=== PATIENT | female | born 1950 | race Caucasian/White ===

== ENCOUNTER 2023-07-22 21:10 | Inpatient (IN) ==
[2023-07-22 21:40] LABS: iSTAT Creatinine 1.3 mg/dl (0.6-1.3); iSTAT Hemoglobin 12.2 g/dl (12.0-16.0); iSTAT Ionized Calcium 1.2 mmol/l (1.12-1.32); iSTAT Potassium 4.1 mmol/L (3.3-5.0)
[2023-07-22 21:51] LABS: Basophils # (auto) 0.08 K/uL (0.00-0.20); Basophils % (auto) 0.4 %; Eosinophils # (auto) 0.08 K/uL (0.00-0.50); Eosinophils % (auto) 0.4 %; Hematocrit (blood only) 35.3 % (37.0-47.0); Hemoglobin 11.2 g/dl (12.0-16.0); Lymphocytes # (auto) 1.14 K/uL (1.20-3.40); Lymphocytes % (auto) 5.7 %; Mean Corpuscular Hemoglobin 30.8 pg (25.0-34.0); Mean Corpuscular Hgb Conc 31.7 g/dL (32.0-36.0); Mean Platelet Volume 9.2 fL (9.4-12.4); Monocytes # (auto) 1.37 K/uL (0.11-0.59); Monocytes % (auto) 6.8 %; Neutrophils # (auto) 17.14 K/uL (1.40-6.50); Neutrophils % (auto) 85.7 %; Platelet Count 905 K/uL (130-400); RDW Coefficient of Variation 15.3 % (11.5-14.5); RDW Standard Deviation 54.2 fL (36.4-46.3); Red Blood Count 3.64 M/uL (4.20-5.40); White Blood Count 20.01 K/ul (4.8-10.8)
[2023-07-22 22:03] LABS: Albumin Level 3.3 gm/dl (3.4-5.0); BUN Creatinine Ratio 11.5 (10-20); Bilirubin Direct 0.1 mg/dl (0-0.2); Bilirubin,Total 0.5 mg/dl (0.2-1.0); Calcium 9.7 mg/dl (8.6-10.3); Est GFR (Non-African American) 40.6 ml/min; Magnesium 1.6 mg/dl (1.7-2.4); Potassium 4.1 mmol/L (3.5-5.1); Total Protein 6.4 gm/dl (6.0-8.3)
[2023-07-22 22:09] LABS: Troponin I High Sensitivity 4.9 pg/ml (0-14)
[2023-07-22] MEDS: OPTIRAY 320 125ml IV ONE (22:10)
[2023-07-22 22:13] LABS: INR 1.1 (0.9-1.1); Partial Thromboplastin Ratio 0.9; Partial Thromboplastin Time 23 Seconds (21-31); Prothrombin Time 11.4 Seconds (9.0-12.0)
[2023-07-22] MEDS: SODIUM CHLORIDE 0.9% 1,000 ML IV SCH (22:22)
[2023-07-22] MEDS: SODIUM CHLORIDE 0.9% 1,000 ML IV ONE (22:24)
--- NOTE | 2023-07-22 22:29 | XRay Report ---
XR chest 1V portable CLINICAL HISTORY: Sepsis TECHNIQUE: Single frontal radiograph of the chest was obtained. Comparison: None available at the time of this dictation. FINDINGS: No lines and tubes are seen. The cardiomediastinal silhouette is normal. The lungs are clear. No evid ence of pleural effusion or pneumothorax. IMPRESSION: No acute abnormalities and in particular no radiographic evidence of pneumonia. ACT 112: Negative or not required by law. Electronically signed by: Wesley Morgan M.D. 07/22/2023 10:27 PM
[2023-07-22 22:33] LABS: Adenovirus PCR Not Detected (NotDetected); Bordetella parapertussis PCR Not Detected (NotDetected); Bordetella pertussis PCR Not Detected (NotDetected); Chlamydia pneumoniae PCR Not Detected (NotDetected); Coronavirus 229E PCR Not Detected (NotDetected); Coronavirus CoV-2 (COVID19)PCR Not Detected (NotDetected); Coronavirus HKU1 PCR Not Detected (NotDetected); Coronavirus NL63 PCR Not Detected (NotDetected); Coronavirus OC43PCR Not Detected (NotDetected); Human Metapneumovirus PCR Not Detected (NotDetected); Influenza A PCR Not Detected (NotDetected); Influenza B PCR Not Detected (NotDetected); Mycoplasma pneumoniae PCR Not Detected (NotDetected); Parainfluenza Virus 1 PCR Not Detected (NotDetected); Parainfluenza Virus 2 PCR Not Detected (NotDetected); Parainfluenza Virus 3 PCR Not Detected (NotDetected); Parainfluenza Virus 4 PCR Not Detected (NotDetected); Respiratory Syncytial VirusPCR Not Detected (NotDetected); Rhinovirus/Enterovirus PCR Not Detected (NotDetected)
--- NOTE | 2023-07-22 22:34 | CT Scan Report ---
Exam(s): CT ABDOMEN + PELVIS With Contrast IV Amt: 115 ml optiray 320 EXAM: CT Abdomen and Pelvis With Intravenous Contrast CLINICAL HISTORY: Reason for exam: nvd hypotensive rigid abdomen. TECHNIQUE: Axial computed tomography images of the abdomen and pelvis with intravenous contrast. CTDI is 49.53 mGy and DLP is 1687.91 mGy-cm. Automated exposure control was utilized for the study. A dose lowering technique was utilized adhering to the principles of ALARA. CONTRAST: Patient received 115 ml optiray 320 of IV contrast COMPARISON: No relevant prior studies available. FINDINGS: Lung bases: Unremarkable. No mass. No consolidation. Mediastinum: Small hiatal hernia. ABDOMEN: Liver: Unremarkable. No mass. Gallbladder and bile ducts: Cholelithiasis without CT findings to suggest acute cholecystitis. No biliary dilatation. Pancreas: Unremarkable. No mass. No ductal dilation. Spleen: Unremarkable. No splenomegaly. Adrenals: Unremarkable. No mass. Kidneys and ureters: Unremarkable. No solid mass. No hydronephrosis. Stomach and bowel: No bowel obstruction. Fluid-filled small bowel. Fluid-filled colon with pancolonic wall thickening. PELVIS: Appendix: Appendix not visualized. Bladder: Bladder wall thickening, cystitis or incomplete distention. Reproductive: Hysterectomy. ABDOMEN and PELVIS: Intraperitoneal space: Unremarkable. No intra-abdominal free air or significant free fluid. Bones/joints: No acute fracture. No dislocation. Soft tissues: Left mastectomy. Right breast implant. Postoperative changes of the low anterior abdominal wall may reflect previous abdominoplasty or TRAM flap. Fluid collection within or just subjacent to the deep abdominal wall musculature and extending into the pre- vesicular space of Retzius, measuring 2.7 x 5.6 x 17 cm, possibly postoperative hematoma/seroma. Multiple regional surgical clips. Subcutaneous drainage catheter extends to the overlying tissues. Vasculature: Atherosclerosis. No aortic aneurysm. Lymph nodes: Unremarkable. No enlarged lymph nodes. IMPRESSION: 1. Postoperative changes of the low anterior abdominal wall may reflect previous abdominoplasty or TRAM flap. Fluid collection within or just subjacent to the deep abdominal wall musculature and extending into the pre-vesicular space of Retzius, measuring 2.7 x 5.6 x 17 cm, possibly postoperative hematoma/seroma. Multiple regional surgical clips. Subcutaneous drainage catheter extends through the overlying tissues, not entering this collection. 2. Fluid-filled small bowel. Fluid-filled colon with pancolonic wall thickening. Findings suggest colitis/enterocolitis. 3. Bladder wall thickening, cystitis or incomplete distention. Correlate with urinalysis. Electronically signed by: oLng Rachel M.D. 07/22/23 22:33 PM
--- NOTE | 2023-07-22 22:42 | CT Scan Report ---
Exam(s): CTA CHEST IV Amt: 115 ml optiray 320 EXAM: CT Angiography Chest With Intravenous Contrast CLINICAL HISTORY: Reason for exam: hypoxia recent surg. TECHNIQUE: Axial computed tomographic angiography images of the chest with intravenous contrast. CTDI is 49.53 mGy and DLP is 1687.91 mGy-cm. Automated exposure control was utilized for the study. A dose lowering technique was utilized adhering to the principles of ALARA. MIP reconstructed images were created and reviewed. COMPARISON: No relevant prior studies available. FINDINGS: Pulmonary arteries: Unremarkable. No pulmonary embolism. Aorta: No acute findings. No aortic aneurysm or dissection. Lungs: Subpleural fibrotic changes anterior left upper lobe may represent postradiation changes. No consolidation or mass. Pleural space: Trace left pleural effusion. No pneumothorax. Heart: Coronary artery atherosclerosis. No cardiomegaly. No significant pericardial effusion. No evidence of RV dysfunction. Mediastinum: Small hiatal hernia. Bones/joints: No acute fracture. No dislocation. Soft tissues: Left mastectomy and left breast reconstruction, possibly with TRAM flap. Right breast implant. Lymph nodes: Unremarkable. No adenopathy. IMPRESSION: Trace left pleural effusion. No pulmonary embolism. Electronically signed by: Long Rachel M.D. 07/22/23 22:41 PM
[2023-07-22 23:22] LABS: Adenovirus F 40/41 PCR Not Detected (NotDetected); Astrovirus PCR Not Detected (NotDetected); Campylobacter PCR Not Detected (NotDetected); Cryptosporidium PCR Not Detected (NotDetected); Cyclospora cayetanensis PCR Not Detected (NotDetected); Entamoeba histolytica PCR Not Detected (NotDetected); Enteroaggregative E.coli(EAEC) Not Detected (NotDetected); Enteropathogenic E.coli (EPEC) Not Detected (NotDetected); Enterotoxigenic E.coli (ETEC) Not Detected (NotDetected); Giardia lamblia PCR Not Detected (NotDetected); Norovirus GI/GII PCR Not Detected (NotDetected); Plesiomonas shigelloides PCR Not Detected (NotDetected); Rotavirus A PCR Not Detected (NotDetected); Salmonella PCR Not Detected (NotDetected); Sapovirus PCR Not Detected (NotDetected); Shiga-like Toxin E.coli (STEC) Not Detected (NotDetected); Shigella/Enteroinvasive E.coli Not Detected (NotDetected); Vibrio cholerae PCR Not Detected (NotDetected); Vibrio species PCR Not Detected (NotDetected); Yersinia enterocolitica PCR Not Detected (NotDetected)
[2023-07-22] MEDS: PIPERACILLIN/TAZOBACTAM 4.5 GM/120 ML BAG IV ONE (23:25)
[2023-07-22 23:34] LABS: HCO3 VBG 19 mmol/L; Oxygen Saturation VBG < 60.0 %; PCO2 VBG 45 mmHg (38-50); PO2 VBG 35 mmHg; pH VBG 7.24 (7.36-7.41)
[2023-07-22] MEDS: SODIUM CHLORIDE 0.9% 500 ML IV ONE (23:47)
--- NOTE | 2023-07-22 23:54 | Surgery Consultation ---
Date of Consultation July 22, 2023 Assessment & Plan (1) Sepsis: I discussed with the treating emergency room physician. He has noted that he has spoken with the surgeon who performed the patient's recent surgery who is Dr. Doan of [facility]. The surgeon did not feel the fluid collection noted on CT scan was the source of the patient's underlying sepsis/problem and did not feel transfer to their facility was necessary at this time and recommended admission to [facility]. From surgical perspective we recommend the following: Provide IV fluid for resuscitation Follow serial labs Appropriate cultures have been ordered which are pending. Will monitor for the results of these Broad-spectrum antibiotics in the form of Zosyn have been initiated. Would recommend continue antibiotics monitoring the patient's clinical response and culture data. Further antibiotic choices can be tailored based on these results Continue MELQUIADES drains to bulb suction At the present time the patient is nontoxic-appearing. She is normotensive with a slight tachycardia of heart rate from 100-1 10. She is afebrile. The patient does not have a noted leukocytosis. She did have an elevated lactic acid level upon presentation emergency department but this is normalized with a dministration of antibiotics and IV fluids. If the patient fails to clinically improve with the above noted measures and there is still concern that the noted fluid collection on her abdominal CT scan is the source of her sepsis transfer to the facility where her surgery was performed may be required Addendum (5:30 AM) Patient revisited at the bedside. She notes that she feels improved since admission. Since admission she has not had any fevers, shakes, or chills. She has remained normotensive and her tachycardia has improved. No change noted in physical exam from time of admission. White blood cell count has improved to 16.2. Patient's creatinine is also improved and is now within the normal range. Continue with plan as noted above. As noted, if patient was clinically deterior ate necessitating potential surgical intervention to the abdominal fluid collection, she will require transfer to [facility] where her surgery was performed History of Present Illness Reason for Consultation: Abdominal fluid collection History of Present Illness This is a 72-year-old female who presented to the emergency department secondary to near syncopal episode. The patient notes that she was feeling fine yesterday but earlier today the patient developed sudden onset of diarrhea and nausea and vomiting. The patient had a episode where she felt as though she was going to pass out. The patient notes that her took her temperature and reports she had a fever although she could not signify what her temperature was. The patient denies any melena or bright red blood per rectum. No hematemesis is noted. She also denies any dysuria. The patient notes that she underwent a left TRAM flap at [facility] approximately [address] Doan. She notes that since her surgery she has not noted any increasing warmth from her incision. She has also not had any drainage from the incision but she does note that she has bilateral MELQUIADES drains in place that have been draining serosanguineous fluid and specifically notes there is been no pus draining from these drains. The patient notes that since her symptoms began she has not had much in the way of oral intake. Since arrival to the hospital the patient has had labs and imaging which I independently reviewed. Chest x-ray did not show any evidence of pneumonia. A CT scan of the chest was performed and this showed the there is a trace left pleural effusion. There are no consolidations suggestive of pneumonia. There is no evidence of pulmonary emboli. CT scan of the abdomen and pelvis was performed. There is no intra-abdominal free air or free fluid. The patient was noted to have a fluid collection adjacent to the deep abdominal wall musculature which extended into the prevesicular space measuring 2.7 x 5.7 x 17 cm. Subcutaneous drainage catheter was noted but was not in the noted fluid collection. There is a fluid-filled small bowel and fluid-filled colon with pancolonic wall thickening suggestive of colitis. There is also bladder wall thickening noted. Labs include a CBC were white blood cell count was elevated at 20.0. Hemoglobin and hematocrit were noted to be 11.2 and 35.3. Platelet count was 905,000. Coagulation studies were normal. Chemistry profile showed sodium and potassium were normal. The BUN and creatinine were 51.3. Magnesium was 1.6. Lactic acid level was initially elevated at 5.8 and was repeated approximately 2 hours later and is now normalized to 1.2. The patient did have a stool bio fire checked and it was negative for all substances tested including C. difficile. Patient also had a respiratory bio fire which was negative for all substances tested including coronavirus. At the time my interview the patient was resting comfortably in bed and she was in no distress. Allergies Allergy/AdvReac Type Severity Reaction Status Date / Time nicotine [From [facility]] AdvReac Nightmare Verified 07/22/23 23:59 Home Medications Medication Instructions Recorded Confirmed Type acetaminophen 325 mg tablet 650 mg PO TID PRN Pain 07/22/23 07/23/23 History (Tylenol) aspirin 81 mg tablet,delayed 81 mg PO DAILY 07/22/23 07/22/23 History release bupropion HCl 150 mg 24 hr tablet, 150 mg PO QAM 07/22/23 07/22/23 History extended release docusate sodium 100 mg capsule 100 mg PO BID 07/22/23 07/22/23 History gabapentin 300 mg capsule 300 mg PO DAILY PRN Pain 07/22/23 07/22/23 History gabapentin 300 mg capsule 600 mg PO HS 07/22/23 07/22/23 History letrozole 2.5 mg tablet 2.5 mg PO DAILY 07/22/23 07/22/23 History lisinopril 5 mg tablet 2.5 mg PO HS 07/22/23 07/22/23 History multivitamin 1 tab PO DAILY 07/22/23 07/22/23 History ondansetron 4 mg disintegrating 4 mg translingual Q6 PRN Nausea 07/22/23 07/22/23 History tablet vitamins-iron fumarate 27 1 tab PO DAILY 07/22/23 07/22/23 History mg iron-folic acid 0.8 mg tablet rosuvastatin 10 mg tablet 10 mg PO QAM 07/22/23 07/22/23 History tramadol 50 mg tablet 50 mg PO Q6 PRN Pain 07/22/23 07/22/23 History Patient History Medical History Breast cancer HLD (hyperlipidemia) HTN (hypertension) CKD (chronic kidney disease) Surgical History H/O breast reconstruction Social History Smoking Status: Former smoker Hx Substance Use: No Preferred Language: Azeri Communication Ability: Effective Entry Level Account Manager Required: No Beliefs That Will Affect Care: None Current Living Situation: Spouse Other Information That Helps Us Care for You: No Feels Safe at Home: Yes Safety Concerns: Feels Safe At This Time Assistive Devices: Glasses Review of Systems Constitutional: + fever Ear, Nose, Mouth, Throat: no ear pain and no hearing loss Respiratory: no cough and no dyspnea Cardiovascular: no chest pain Gastrointestinal: as per Subjective / HPI Genitourinary: no dysuria Musculoskeletal: no back pain Integumentary: no rash Neurologic: no localized weakness Physical Exam Constitutional: WD/WN, vitals as above Eyes: no conjunctival abnormality ENMT: Ears: no hearing impairment and no external ear abnormality Mouth: no oropharynx abnormality Neck: trachea midline Respiratory: normal respiratory effort; no respiratory distress and no labored breathing Cardiovascular: Rate/Rhythm: regular rate and regular rhythm Chest (Breasts): Additional Comments: With a female nurse professor of exercise science present I examined the patient's left chest. She has evidence of a TRAM flap as described in history of present illness. The incision for this part of the surgery is clean, dry, and intact. There is no drainage or erythema. There is no warmth noted of the tissue surrounding the incision. There is no crepitus in the soft tissue. Gastrointestinal (Abdomen): Patient's abdomen is minimally distended and nonrigid. There is no rebound tenderness or guarding. The patient had a transverse incision extending from the anterior inferior iliac spine on the left to the anterior inferior iliac spine on the right. The incision is well-approximated and is clean, dry, and intact. There is no drainage coming from the incision. There is no surrounding erythema of the incision. There is no crepitus in the soft tissue. The tissue surrounding the incision is not warm. The patient has bilateral MELQUIADES drains in place. These drains are draining serosanguineous fluid and the fluid does not appear purulent. There is a masslike area just to the left of the midline underlying the incision consistent with fluid collection noted on CT scan. Musculoskeletal: No calf tenderness, feet are cool with palpable pedal pulses and are nonmottled Skin: no rashes Neurologic: moves all extremities Psychiatric: A+Ox3, euthymic affect Results & Data Vital Signs (Past 12 Hours) Vital Signs Temp Pulse Pulse Resp BP BP Pulse Ox 07/22/23 22:25 112 H 22 126/64 100 07/22/23 21:50 98 07/22/23 21:35 36.7 C 121 H 20 101/78 98 O2 Del Method O2 Flow Rate 07/22/23 22:25 Nasal Cannula 2 07/22/23 21:50 Nasal Cannula 2 07/22/23 21:35 Nasal Cannula 2 PG Care Time/CCT Total # of Minutes Spent Total Time Spent with Patient: Total time spent is greater than 50% in coordination of care (as documented) at patient's floor/unit and/or counseling patient: Coding Level of Care Code 31727 INT INP/OBS CARE 3/75MIN Diagnoses Sepsis A41.9
[2023-07-23] MEDS: SODIUM CHLORIDE 0.9% 1,000 ML IV ONE (00:15)
[2023-07-23] MEDS: MAGNESIUM SULFATE / D5W 1 GM/100 ML BAG IV SCH (00:15)
[2023-07-23 00:18] LABS: Appearance Urine Clear (Clear); Bacteria Urine Automated None Seen (None Seen); Bilirubin Urine Negative (Negative); Blood Urine Negative (Negative); Color Urine Yellow; Glucose Urine UA Negative (Negative); Ketones Urine Negative (Negative); Leukocyte Esterase Urine Negative (Negative); Nitrite Urine Negative (Negative); Protein Urine 1+ (Negative); Specific Gravity Urine > 1.045 (1.000-1.030); Urobilinogen Urine Negative (Negative); WBC Urine Automated 0-5 /hpf (0-5); pH Urine 6.5 (4.5-7.5)
--- NOTE | 2023-07-23 01:05 | History & Physical Report ---
Date of Service July 23, 2023 Assessment & Plan (1) Severe sepsis: Plan: SIRS plus ARF plus lactic acidosis Patient clinical better and lactic acidosis resolved after initial intervention at the ER Possible sources : Diarrheal illness postop fluid collection (recent abdominal surgery for left breast reconstruction) hypertension, BP currently stable, patient initially hypotensive at home hyperlipidemia on statin Rx bronchial asthma, patient currently without pulmonary symptoms Left breast cancer status post surgery status post chemoradiation status post recent reconstruction currently on letrozole Anemia, hemoglobin improved from postop hemoglobin of 9 from last month, likely from hemoconcentration Hyperglycemia rule out DM past tobacco abuse Medical telemetry CS, Daptomycin and Zosyn Monitor creatinine response to IVF Hold lisinopril until creatinine back to baseline General Surgery consult Re: Abdominal wall fluid collection (Patient already seen by [facility] provider at the ER.) Check hemoglobin A1c DVT prophylaxis. SCDs Re: Possible abdominal wall hematoma as per CT report Full code Text document was generated using [employer] voice recognition software. It may contain grammatical or spelling errors. Kindly contact undersigned for clarification of any documentation item in question. History of Present Illness Chief Complaint: Diarrhea, near syncope Primary Care Provider: Agustin Olivares MD History obtained from patient and records. Medical history significant for hypertension, hyperlipidemia, bronchial asthma, left breast cancer status post surgery status post chemoradiation status post recent reconstruction currently on letrozole, lung nodule, past tobacco abuse. Recent [facility] confinement under Plastic Surgery service for left breast reconstruction with RADHA flap. Patient hypotensive postprocedure requiring pressor Rx at ICU.. Postop hemoglobin noted to be 6.8 requiring PRBC transfusion. Hemoglobin noted to be 9 at time of discharge. No concerns on outpatient Plastic Surgery follow-up visit last week. Yesterday, patient started not feeling well with achy abdominal pain followed by bilious emesis and watery diarrhea. Denies headache, chest pain, cough, SOB symptoms. Patient lightheaded, felt like she was going to pass out. EMS called to patient's home. Patient looked ashen tapia as per report. SBP noted to be 80s. Zosyn administered at the ER. Medical History as above Surgical History : Breast capsulectomy, breast lesion excision, breast implant, complete mastectomy left, mastopexy, a port placement, embolectomy, cataract surgeries, BHARGAVI Family History : Breast cancer, heart disease, lung cancer Personal/Social history : Past tobacco abuse, occasional EtOH intake, retired from criminal investigation work. Allergies Allergy/AdvReac Type Severity Reaction Status Date / Time nicotine [From [facility]] AdvReac Nightmare Verified 07/22/23 23:59 Home Medications Medication Instructions Recorded Confirmed Type acetaminophen 325 mg tablet 650 mg PO TID PRN Pain 07/22/23 07/23/23 History (Tylenol) aspirin 81 mg tablet,delayed 81 mg PO DAILY 07/22/23 07/22/23 History release bupropion HCl 150 mg 24 hr tablet, 150 mg PO QAM 07/22/23 07/22/23 History extended release docusate sodium 100 mg capsule 100 mg PO BID 07/22/23 07/22/23 History gabapentin 300 mg capsule 300 mg PO DAILY PRN Pain 07/22/23 07/22/23 History gabapentin 300 mg capsule 600 mg PO HS 07/22/23 07/22/23 History letrozole 2.5 mg tablet 2.5 mg PO DAILY 07/22/23 07/22/23 History lisinopril 5 mg tablet 2.5 mg PO HS 07/22/23 07/22/23 History multivitamin 1 tab PO DAILY 07/22/23 07/22/23 History ondansetron 4 mg disintegrating 4 mg translingual Q6 PRN Nausea 07/22/23 07/22/23 History tablet vitamins-iron fumarate 27 1 tab PO DAILY 07/22/23 07/22/23 History mg iron-folic acid 0.8 mg tablet rosuvastatin 10 mg tablet 10 mg PO QAM 07/22/23 07/22/23 History tramadol 50 mg tablet 50 mg PO Q6 PRN Pain 07/22/23 07/22/23 History Past Med/Surg History Problem List (Updated 07/23/23 @ 03:15 by Adal Salcedo MD) Severe sepsis Abdominal wall seroma (Acute) Hypoxia (Acute) Sepsis (Acute) Medical History Breast cancer HLD (hyperlipidemia) HTN (hypertension) CKD (chronic kidney disease) Surgical History H/O breast reconstruction Social History Smoking Status: Former smoker Preferred Language: Turkmen Feels Safe at Home: Yes Review of Systems Review of Systems: As per HPI, all other systems reviewed and negative Physical Exam Physical Exam: GENERAL: Comfortable, pleasant, no respiratory distress SKIN: Pallor, warm HEENT: Pale palpebral conjunctivae, no ptosis, dry buccal mucosa NECK : Supple, no tenderness CHEST : CTA, no tenderness HEART : Tachycardic, no obvious murmurs ABDOMEN: Some distention, jeni in place, minimal hypogastric tenderness EXTREMITIES : No LE swelling/tenderness, no other conspicuous deformities noted NEUROLOGIC : Coherent, no facial asymmetry, no other gross focality Results & Data Results & Data Vital Signs (Past 12 Hours) Vital Signs Temp Pulse Pulse Resp BP BP Pulse Ox 07/23/23 00:00 111 H 21 153/73 H 100 07/22/23 23:30 121/103 H 07/22/23 22:30 110 H 24 139/78 07/22/23 22:25 112 H 22 126/64 100 07/22/23 21:50 98 07/22/23 21:35 36.7 C 121 H 20 101/78 98 O2 Del Method O2 Flow Rate 07/23/23 00:00 Nasal Cannula 2 07/22/23 23:30 07/22/23 22:30 07/22/23 22:25 Nasal Cannula 2 07/22/23 21:50 Nasal Cannula 2 07/22/23 21:35 Nasal Cannula 2 Laboratory Results Laboratory Results WBC 20.01 K/ul (4.8-10.8) H 07/22/23 21: RBC 3.64 M/uL (4.20-5.40) L 07/22/23 21: Hgb 11.2 g/dl (12.0-16.0) L 07/22/23 21: POC Hgb 12.2 g/dl (12.0-16.0) 07/22/23 21: Hct 35.3 % (37.0-47.0) L 07/22/23 21: POC Hct 36 % (37-47) L 07/22/23 21: MCV 97.0 fL (80.0-100.0) 07/22/23 21: MCH 30.8 pg (25.0-34.0) 07/22/23 21: MCHC 31.7 g/dL (32.0-36.0) L 07/22/23 21: RDW Std Deviation 54.2 fL (36.4-46.3) H 07/22/23: RDW Coeff of Braxton 15.3 % (11.5-14.5) H 07/22/23 21:24 Plt Count 905 K/uL (130-400) H 07/22/23 21: MPV 9.2 fL (9.4-12.4) L 07/22/23 21: Immature Gran % (Auto) 1.0 % 07/22/23 21: Neut % (Auto) 85.7 % 07/22/23: Lymph % (Auto) 5.7 % 07/22/23: Desha % (Auto) 6.8 % 07/22/23: Eos % (Auto) 0.4 % 07/22/23: Baso % (Auto) 0.4 % 07/22/23: Neut # (Auto) 17.14 K/uL (1.40-6.50) H 07/22/23 21:24 Lymph # (Auto) 1.14 K/uL (1.20-3.40) L 07/22/23 21:24 Desha # (Auto) 1.37 K/uL (0.11-0.59) H 07/22/23 21:24 Eos # (Auto) 0.08 K/uL (0.00-0.50) 07/22/23: Baso # (Auto) 0.08 K/uL (0.00-0.20) 07/22/23 21: Immature Gran # (Auto) 0.20 K/uL (0.01-0.20) 07/22/23: PT 11.4 Seconds (9.0-12.0) 07/22/23: INR 1.1 (0.9-1.1) 07/22/23: APTT 23 Seconds (21-31) 07/22/23: PTT Ratio 0.9 07/22/23 21: VBG pH 7.24 (7.36-7.41) L 06/14/24 23:23 VBG pCO2 45 mmHg (38-50) 07/22/23 23: VBG pO2 35 mmHg 07/22/23 23:23 VBG HCO3 19 mmol/L 07/22/23 23: VBG O2 Saturation < 60.0 % 07/22/23 23: VBG Base Excess -8.0 mEq/L 07/22/23 23:23 POC Sodium 136 mmol/L (135-144) 07/22/23 21: Sodium 136 mmol/L (136-145) 07/22/23: POC Potassium 4.1 mmol/L (3.3-5.0) 07/22/23 21: Potassium 4.1 mmol/L (3.5-5.1) 07/22/23: POC Chloride 104 mmol/L (101-112) 07/22/23 21: Chloride 103 mmol/L (98-107) 07/22/23: Carbon Dioxide 20 mmol/L (21-32) L 07/22/23: POC Total CO2 21 mmol/L (24-31) L 07/22/23: Anion Gap 13 (3-11) H 07/22/23 21: POC Anion Gap 16.0 mmol/L (16-25) 07/22/23 21: POC BUN 13 mg/dl (7-18) 07/22/23: BUN 15 mg/dl (6-23) 07/22/23: Creatinine 1.31 mg/dl (0.6-1.2) H 07/22/23: POC Creatinine 1.3 mg/dl (0.6-1.3) 07/22/23: Est Cr Clr Drug Dosing 45.0 ml/min 07/22/23 21: Est GFR ( Amer) 47.0 ml/min 07/22/23 21: Est GFR (Non-Af Amer) 40.6 ml/min 07/22/23 21: BUN/Creatinine Ratio 11.5 (10-20) 07/22/23 21: Glucose 124 mg/dl (70-99(Fasting)) H 07/22/23 21: POC Glucose (other) 119 mg/dl (70-99) H 06/14/24 21:27 Lactate 1.2 mmol/L (0.4-2.0) 07/22/23 23:23 Calcium 9.7 mg/dl (8.6-10.3) 07/22/23 21:24 POC Ioniz Calcium Tim 1.20 mmol/l (1.12-1.32) 07/22/23 21:27 Magnesium 1.6 mg/dl (1.7-2.4) L 07/22/23 21:24 Total Bilirubin 0.5 mg/dl (0.2-1.0) 07/22/23 21:24 Direct Bilirubin 0.1 mg/dl (0-0.2) 07/22/23 21:24 AST 21 U/L (13-39) 07/22/23 21:24 ALT 11 U/L (7-52) 07/22/23 21:24 Alkaline Phosphatase 89 U/L (34-104) 07/22/23 21:24 Troponin I High Sens 4.9 pg/ml (0-14) 07/22/23 21:24 Total Protein 6.4 gm/dl (6.0-8.3) 07/22/23 21:24 Albumin 3.3 gm/dl (3.4-5.0) L 07/22/23 21:24 Procalcitonin 1.50 ng/ml (0-0.5) H 07/22/23 21:24 Urine Color Yellow 07/22/23 23:54 Urine Appearance Clear (Clear) 07/22/23 23:54 Urine pH 6.5 (4.5-7.5) 07/22/23 23:54 Ur Specific [place] > 1.045 (1.000-1.030) H 07/22/23 23:54 Urine Protein 1+ (Negative) H 07/22/23 23:54 Urine Glucose (UA) Negative (Negative) 07/22/23 23:54 Urine Ketones Negative (Negative) 07/22/23 23:54 Urine Blood Negative (Negative) 07/22/23 23:54 Urine Nitrite Negative (Negative) 07/22/23 23:54 Urine Bilirubin Negative (Negative) 07/22/23 23:54 Urine Urobilinogen Negative (Negative) 07/22/23 23:54 Ur Leukocyte Esterase Negative (Negative) 07/22/23 23:54 Urine WBC (Auto) 0-5 /hpf (0-5) 07/22/23 23:54 Urine RBC (Auto) 3-5 /hpf (0-2) H 07/22/23 23:54 U Hyaline Cast (Auto) 3-5 /lpf (0-2) H 07/22/23 23:54 U Epithel Cells (Auto) 3-5 /hpf (0-2) H 07/22/23 23:54 Urine Bacteria (Auto) None Seen (None Seen) 07/22/23 23:54 Stl C. cayetanensis PCR Not Detected (NotDetected) 07/22/23 21:47 Stool Rotavirus A PCR Not Detected (NotDetected) 07/22/23 21:47 Stl Adenov F 40/41 PCR Not Detected (NotDetected) 07/22/23 21:47 Stool Astrovirus (PCR) Not Detected (NotDetected) 07/22/23 21:47 Stool Campylobacter PCR Not Detected (NotDetected) 07/22/23 21:47 Stl C. diff Tox B Gene Negative Cdiff Gene (Neg) 07/22/23 21:47 Stool Cryptosporidium PCR Not Detected (NotDetected) 07/22/23 21:47 Stl E.coli Shiga Tox PCR Not Detected (NotDetected) 07/22/23 21:47 Stl Enterotoxigenic E PCR Not Detected (NotDetected) 07/22/23 21:47 Stool EPEC (PCR) Not Detected (NotDetected) 07/22/23 21:47 Stool EAEC (PCR) Not Detected (NotDetected) 07/22/23 21:47 Stl E. histolytica PCR Not Detected (NotDetected) 07/22/23 21:47 Stool Giardia Lamblia PCR Not Detected (NotDetected) 07/22/23 21:47 Stool Salmonella PCR Not Detected (NotDetected) 07/22/23 21:47 Stool Sapovirus (PCR) Not Detected (NotDetected) 07/22/23 21:47 Stl P. shigelloides PCR Not Detected (NotDetected) 07/22/23 21:47 Stl Shigella/EIEC PCR Not Detected (NotDetected) 07/22/23 21:47 St Y.enterocolitica PCR Not Detected (NotDetected) 07/22/23 21:47 Stool Vibrio (PCR) Not Detected (NotDetected) 07/22/23 21:47 Stl Vibrio cholerae PCR Not Detected (NotDetected) 07/22/23 21:47 Stl Norovirus GI/GII PCR Not Detected (NotDetected) 07/22/23 21:47 Adenovirus (PCR) Not Detected (NotDetected) 07/22/23 Unknown B. pertussis DNA (PCR) Not Detected (NotDetected) 07/22/23 Unknown B.parapertussis DNA PCR Not Detected (NotDetected) 07/22/23 Unknown C. pneumoniae DNA (PCR) Not Detected (NotDetected) 07/22/23 Unknown Coronavirus OC43 (PCR) Not Detected (NotDetected) 07/22/23 Unknown Coronavirus HKU1 (PCR) Not Detected (NotDetected) 07/22/23 Unknown Coronavirus 229E (PCR) Not Detected (NotDetected) 07/22/23 Unknown SARS-CoV-2 (PCR) Not Detected (NotDetected) 07/22/23 Unknown Coronavirus NL63 (PCR) Not Detected (NotDetected) 07/22/23 Unknown Human Metapneumovir PCR Not Detected (NotDetected) 07/22/23 Unknown Influenza Type A (PCR) Not Detected (NotDetected) 07/22/23 Unknown Influenza Type B (PCR) Not Detected (NotDetected) 07/22/23 Unknown M. pneumoniae (PCR) Not Detected (NotDetected) 07/22/23 Unknown Parainfluenza 1 (PCR) Not Detected (NotDetected) 07/22/23 Unknown Parainfluenza 2 (PCR) Not Detected (NotDetected) 07/22/23 Unknown Parainfluenza 3 (PCR) Not Detected (NotDetected) 07/22/23 Unknown Parainfluenza 4 (PCR) Not Detected (NotDetected) 07/22/23 Unknown RSV (PCR) Not Detected (NotDetected) 07/22/23 Unknown Entero/Rhino (PCR) Not Detected (NotDetected) 07/22/23 Unknown Impressions Abdomen/Pelvis CT 07/22/23 21:16 Exam(s): CT ABDOMEN + PELVIS With Contrast IV Amt: 115 ml optiray 320 EXAM: CT Abdomen and Pelvis With Intravenous Contrast CLINICAL HISTORY: Reason for exam: nvd hypotensive rigid abdomen. TECHNIQUE: Axial computed tomography images of the abdomen and pelvis with intravenous contrast. CTDI is 49.53 mGy and DLP is 1687.91 mGy-cm. Automated exposure control was utilized for the study. A dose lowering technique was utilized adhering to the principles of ALARA. CONTRAST: Patient received 115 ml optiray 320 of IV contrast COMPARISON: No relevant prior studies available. FINDINGS: Lung bases: Unremarkable. No mass. No consolidation. Mediastinum: Small hiatal hernia. ABDOMEN: Liver: Unremarkable. No mass. Gallbladder and bile ducts: Cholelithiasis without CT findings to suggest acute cholecystitis. No biliary dilatation. Pancreas: Unremarkable. No mass. No ductal dilation. Spleen: Unremarkable. No splenomegaly. Adrenals: Unremarkable. No mass. Kidneys and ureters: Unremarkable. No solid mass. No hydronephrosis. Stomach and bowel: No bowel obstruction. Fluid-filled small bowel. Fluid-filled colon with pancolonic wall thickening. PELVIS: Appendix: Appendix not visualized. Bladder: Bladder wall thickening, cystitis or incomplete distention. Reproductive: Hysterectomy. ABDOMEN and PELVIS: Intraperitoneal space: Unremarkable. No intra-abdominal free air or significant free fluid. Bones/joints: No acute fracture. No dislocation. Soft tissues: Left mastectomy. Right breast implant. Postoperative changes of the low anterior abdominal wall may reflect previous abdominoplasty or TRAM flap. Fluid collection within or just subjacent to the deep abdominal wall musculature and extending into the pre- vesicular space of Retzius, measuring 2.7 x 5.6 x 17 cm, possibly postoperative hematoma/seroma. Multiple regional surgical clips. Subcutaneous drainage catheter extends to the overlying tissues. Vasculature: Atherosclerosis. No aortic aneurysm. Lymph nodes: Unremarkable. No enlarged lymph nodes. IMPRESSION: 1. Postoperative changes of the low anterior abdominal wall may reflect previous abdominoplasty or TRAM flap. Fluid collection within or just subjacent to the deep abdominal wall musculature and extending into the pre-vesicular space of Retzius, measuring 2.7 x 5.6 x 17 cm, possibly postoperative hematoma/seroma. Multiple regional surgical clips. Subcutaneous drainage catheter extends through the overlying tissues, not entering this collection. 2. Fluid-filled small bowel. Fluid-filled colon with pancolonic wall thickening. Findings suggest colitis/enterocolitis. 3. Bladder wall thickening, cystitis or incomplete distention. Correlate with urinalysis. Electronically signed by: Long Rachel M.D. 07/22/23 22:33 PM Chest X-Ray 07/22/23 21:16 XR chest 1V portable CLINICAL HISTORY: Sepsis TECHNIQUE: Single frontal radiograph of the chest was obtained. Comparison: None available at the time of this dictation. FINDINGS: No lines and tubes are seen. The cardiomediastinal silhouette is normal. The lungs are clear. No evidence of pleural effusion or pneumothorax. IMPRESSION: No acute abnormalities and in particular no radiographic evidence of pneumonia. ACT 112: Negative or not required by law. Electronically signed by: Wesley Morgan M.D. 07/22/2023 10:27 PM Chest CTA 07/22/23 21:17 Exam(s): CTA CHEST IV Amt: 115 ml optiray 320 EXAM: CT Angiography Chest With Intravenous Contrast CLINICAL HISTORY: Reason for exam: hypoxia recent surg. TECHNIQUE: Axial computed tomographic angiography images of the chest with intravenous contrast. CTDI is 49.53 mGy and DLP is 1687.91 mGy-cm. Automated exposure control was utilized for the study. A dose lowering technique was utilized adhering to the principles of ALARA. MIP reconstructed images were created and reviewed. COMPARISON: No relevant prior studies available. FINDINGS: Pulmonary arteries: Unremarkable. No pulmonary embolism. Aorta: No acute findings. No aortic aneurysm or dissection. Lungs: Subpleural fibrotic changes anterior left upper lobe may represent postradiation changes. No consolidation or mass. Pleural space: Trace left pleural effusion. No pneumothorax. Heart: Coronary artery atherosclerosis. No cardiomegaly. No significant pericardial effusion. No evidence of RV dysfunction. Mediastinum: Small hiatal hernia. Bones/joints: No acute fracture. No dislocation. Soft tissues: Left mastectomy and left breast reconstruction, possibly with TRAM flap. Right breast implant. Lymph nodes: Unremarkable. No adenopathy. IMPRESSION: Trace left pleural effusion. No pulmonary embolism. Electronically signed by: Long Rachel M.D. 07/22/23 22:41 PM Diagnostic Findings EKG as per my interpretation :Rate 120, sinus tachycardia, LAD, LAFB, no ischemia, multiple artifacts
--- NOTE | 2023-07-23 01:27 | Emergency Department Note ---
History of Present Illness General Chief complaint: Syncope (Near Syncope) Stated complaint: N/V, Diarrhea, Near Syncope Time Seen by Provider: 07/22/23 21:16 History of Present Illness Provider complaint: Nausea vomiting diarrhea 72-year-old female presents emergency department for nausea vomiting and diarrhea. Patient had liquid stools earlier today. No melena or hematochezia. Patient was also having vomiting. No hematemesis coffee-ground emesis or bilious vomiting. No fever. Patient has syncopal episode earlier today. No chest pain or difficulty breathing. Patient did have recent surgery done at [facility]. Home Medications Medication Instructions Recorded Confirmed Type acetaminophen 325 mg tablet 975 mg PO TID 07/22/23 07/22/23 History (Tylenol) aspirin 81 mg tablet,delayed 81 mg PO DAILY 07/22/23 07/22/23 History release bupropion HCl 150 mg 24 hr tablet, 150 mg PO QAM 07/22/23 07/22/23 History extended release docusate sodium 100 mg capsule 100 mg PO BID 07/22/23 07/22/23 History gabapentin 300 mg capsule 300 mg PO DAILY PRN Pain 07/22/23 07/22/23 History gabapentin 300 mg capsule 600 mg PO HS 07/22/23 07/22/23 History letrozole 2.5 mg tablet 2.5 mg PO DAILY 07/22/23 07/22/23 History lisinopril 5 mg tablet 2.5 mg PO HS 07/22/23 07/22/23 History multivitamin 1 tab PO DAILY 07/22/23 07/22/23 History ondansetron 4 mg disintegrating 4 mg translingual Q6 PRN Nausea 07/22/23 07/22/23 History tablet vitamins-iron fumarate 27 1 tab PO DAILY 07/22/23 07/22/23 History mg iron-folic acid 0.8 mg tablet rosuvastatin 10 mg tablet 10 mg PO QAM 07/22/23 07/22/23 History tramadol 50 mg tablet 50 mg PO Q6 PRN Pain 07/22/23 07/22/23 History Allergies Allergy/AdvReac Type Severity Reaction Status Date / Time nicotine [From Nicoderm ] AdvReac Nightmare Verified 07/22/23 23:59 Past Med/Surg History Problem List (Updated 07/23/23 @ 01:26 by Joe Garcia MD) Abdominal wall seroma (Acute) Hypoxia (Acute) Sepsis (Acute) Medical History Breast cancer HLD (hyperlipidemia) HTN (hypertension) CKD (chronic kidney disease) Surgical History H/O breast reconstruction Social History Smoking Status: Former smoker Preferred Language: Pashto Feels Safe at Home: Yes Physical Exam Vital Signs Vital Signs - 24 hr 07/22/23 21:35 07/22/23 21:50 07/22/23 22:25 Temperature 36.7 C Temperature Source Oral Pulse Rate 121 H Pulse Rate [Apical] 112 H Respiratory Rate 20 22 Respiratory Effort / Characteristics Non-Labored Spontaneous Non-Labored Spontaneous Respiratory Depth Normal Normal Respiratory Pattern Regular Regular Blood Pressure 101/78 Blood Pressure [Right Arm] 126/64 Blood Pressure Mean 85 Blood Pressure Mean [Right Arm] 84 Blood Pressure Position Sitting Blood Pressure Position [Right Arm] Lying Pulse Oximetry 98 98 100 Oxygen Delivery Method Nasal Cannula Nasal Cannula Nasal Cannula Oxygen Flow Rate 2 2 2 Sepsis Recent Fever Within 48 Hours No Sepsis New/Unexplained Change in Mental Status N/A Sepsis Action Taken by Nursing No Action Required 07/22/23 22:30 07/22/23 23:30 07/23/23 00:00 Temperature Temperature Source Pulse Rate 110 H 111 H Pulse Rate [Apical] Respiratory Rate 24 21 Respiratory Effort / Characteristics Respiratory Depth Respiratory Pattern Blood Pressure 139/78 121/103 H 153/73 H Blood Pressure [Right Arm] Blood Pressure Mean 98 110 99 Blood Pressure Mean [Right Arm] Blood Pressure Position Blood Pressure Position [Right Arm] Pulse Oximetry 100 Oxygen Delivery Method Nasal Cannula Oxygen Flow Rate 2 Sepsis Recent Fever Within 48 Hours Sepsis New/Unexplained Change in Mental Status Sepsis Action Taken by Nursing Physical Exam GENERAL: Ill-appearing. HENT: Exam performed. -Head: Normocephalic and atraumatic. CV: Normal rate, regular rhythm, normal heart sounds and intact distal pulses. There is no peripheral edema. Palpable radial pulses bue. PULM/CHEST: Effort normal and breath sounds normal. No respiratory distress. No stridor. She has no wheezes. She has no rales. -Chest Wall: Scar over the anterior left chest with MELQUIADES drain. ABD: There is a large surgical scar over the lower anterior abdominal wall with no surrounding erythema discharge or bleeding. MELQUIADES drain coming out of it. There is no tenderness. There is no rebound, no guarding. NEURO: Motor and sensation grossly intact. SKIN: Pale. Course Course 2115: The patient was evaluated in room C9. A complete history and physical exam was performed Cardiac monitoring: An order was placed for continuous cardiac monitoring. The monitor shows a rate of 120 with sinus rhythm interpreted by [facility] delivered 1 L of normal saline to the patient. Patient hypoxic on arrival in the emergency department, 2 L nasal cannula was applied which improved the patient's oxygen saturation. Patient is still mildly hypotensive, sepsis protocols initiated. 2229: Patient's lactic acid 5.8. Zosyn ordered for the patient. 7: Vital signs stable supplemental oxygen via nasal cannula. Labs show white blood cell count of 20.01. Hemoglobin 11.2. VBG shows a venous pH of 7.24. Urinalysis and stool studies are still pending. BioFire negative. CTA of the chest negative for PE. CT of the abdomen pelvis shows postoperative change flow tear anterior abdominal wall with fluid collection within or just subjacent to the deep abdominal wall musculature extending into the prevesicular space of Retzius measuring 2.7 x 5.6 x 17 cm possibly postoperative hematoma/seroma. The subcutaneous drainage catheters are not in the fluid collection. There is fluids filled small bowel and fluid-filled colon with a pain colonic wall thickening suggestive of a colitis/enterocolitis. Discussed the case with Dr. Doan at [facility] the patient's plastic surgeon. I read him the report of the CT of the abdomen pelvis verbatim. He states he does not think that the fluid collection is an abscess because there is no rim enhancement and thinks that the fluid collection as it is expected given the patient's postoperative course. He states that the patient does not need to be transferred at this time and the patient can be admitted here. 2328: Vital signs stable supplemental oxygen via nasal cannula. Stool BioFire C. difficile negative. Discussed case with Dr. Polk [facility] hospitalist who requested a surgical consultation to be completed by the surgery team at this facility prior to him admitting the patient. 0030: Vital signs stable on supplemental oxygen via nasal cannula. Repeat lactic acid within normal limits. Patient was evaluated by general surgery team Matthew Bunch on-call for Dr. Gill. They agreed that the patient can be admitted to the medicine service. Dr. Polk notified and will admit the patient to his service. Administered Medications Magnesium Sulfate/Dextrose (Magnesium Sulfate / D5w) 1 gm in 100 mls @ 50 mls/hr IV Q2H TOM Stop: 07/23/23 04:14 Last Admin: 07/23/23 00:15 Dose: 50 mls/hr Documented By: Sodium Chloride (Nss) 1,000 mls @ 80 mls/hr IV .[id number] ONE Stop: 07/23/23 12:35 Last Admin: 07/23/23 00:15 Dose: 80 mls/hr Documented By: Discontinued Medications Sodium Chloride (Nss) 1,000 mls @ 999 mls/hr IV .Q1H1M TOM Stop: 07/22/23 22:30 Last Infusion: 07/22/23 22:25 Dose: Infused Documented By: Admin: 07/22/23 22:22 Dose: 999 mls/hr Documented By: Sodium Chloride (Nss) 1,000 mls @ 999 mls/hr IV .Q1H1M ONE Stop: 07/22/23 23:21 Last Infusion: 07/23/23 00:08 Dose: Infused Documented By: Admin: 07/22/23 22:24 Dose: 999 mls/hr Documented By: Sodium Chloride (Nss) 500 mls @ 999 mls/hr IV .Q31M ONE Stop: 07/22/23 22:51 Last Infusion: 07/23/23 00:08 Dose: Infused Documented By: Admin: 07/22/23 23:47 Dose: 999 mls/hr Documented By: Piperacillin Sod/Tazobactam Sod (Zosyn) 4.5 gm in 120 mls @ 240 mls/hr IV NOW ONE Stop: 07/22/23 22:56 Last Infusion: 07/23/23 00:08 Dose: Infused Documented By: Admin: 07/22/23 23:25 Dose: 240 mls/hr Documented By: Ioversol (Optiray 320 125ml) 115 ml IV ONCE ONE Stop: 07/22/23 22:02 Last Admin: 07/22/23 22:10 Dose: 115 ml Documented By: JESSE Critical Care Time Critical Care Time: Yes Total Critical Care Time: 79 I have personally spent greater than 79 minutes of critical care time in the direct management of this patient. This includes bedside care, interpretation of diagnostic studies, and testing, discussion with consultants, patient, and family members, and other required patient management activities. This 79 minutes is in excess of all separately billable procedures. Medical Decision Making Medical Records Attestation: I reviewed the patient's medical records. External medical records were obtained by Ty fleet sales manager from the [employer] system. Patient had a left D IEP flap reconstruction by Dr. Doan on July 05, 2023. Patient became mildly hypotensive after being awoken from anesthesia and required vasopressors and was taken to the ICU. She was transfused 1 unit packed red blood cells which she responded to appropriately. Laboratory Data Attestation: I reviewed the patient's lab results. 07/22/23 21:24 07/22/23 21:24 Lab Results 07/22/23 07/22/23 07/22/23 Range/Units 21:20 21:24 21:27 WBC 20.01 H (4.8-10.8) K/ul RBC 3.64 L (4.20-5.40) M/uL Hgb 11.2 L (12.0-16.0) g/dl POC Hgb 12.2 (12.0-16.0) g/dl Hct 35.3 L (37.0-47.0) % POC Hct 36 L (37-47) % MCV 97.0 (80.0-100.0) fL MCH 30.8 (25.0-34.0) pg MCHC 31.7 L (32.0-36.0) g/dL RDW Std Deviation 54.2 H (36.4-46.3) fL RDW Coeff of Braxton 15.3 H (11.5-14.5) % Plt Count 905 H (130-400) K/uL MPV 9.2 L (9.4-12.4) fL Immature Gran % (Auto) 1.0 % Neut % (Auto) 85.7 % Lymph % (Auto) 5.7 % [place] % (Auto) 6.8 % Eos % (Auto) 0.4 % Baso % (Auto) 0.4 % Neut # (Auto) 17.14 H (1.40-6.50) K/uL Lymph # (Auto) 1.14 L (1.20-3.40) K/uL [place] # (Auto) 1.37 H (0.11-0.59) K/uL Eos # (Auto) 0.08 (0.00-0.50) K/uL Baso # (Auto) 0.08 (0.00-0.20) K/uL Immature Gran # (Auto) 0.20 (0.01-0.20) K/uL PT 11.4 (9.0-12.0) Seconds INR 1.1 (0.9-1.1) APTT 23 (21-31) Seconds PTT Ratio 0.9 VBG pH (7.36-7.41) VBG pCO2 (38-50) mmHg VBG pO2 mmHg VBG HCO3 mmol/L VBG O2 Saturation % VBG Base Excess mEq/L POC Sodium 136 (135-144) mmol/L Sodium 136 (136-145) mmol/L POC Potassium 4.1 (3.3-5.0) mmol/L Potassium 4.1 (3.5-5.1) mmol/L POC Chloride 104 (101-112) mmol/L Chloride 103 (98-107) mmol/L Carbon Dioxide 20 L (21-32) mmol/L POC Total CO2 21 L (24-31) mmol/L Anion Gap 13 H (3-11) POC Anion Gap 16.0 (16-25) mmol/L POC BUN 13 (7-18) mg/dl BUN 15 (6-23) mg/dl Creatinine 1.31 H (0.6-1.2) mg/dl POC Creatinine 1.3 (0.6-1.3) mg/dl Est Cr Clr Drug Dosing 45.0 ml/min Est GFR ( Amer) 47.0 ml/min Est GFR (Non-Af Amer) 40.6 ml/min BUN/Creatinine Ratio 11.5 (10-20) Glucose 124 H (70-99(Fasting)) mg/dl POC Glucose (other) 119 H (70-99) mg/dl Lactate 5.8 H* (0.4-2.0) mmol/L Calcium 9.7 (8.6-10.3) mg/dl POC Ioniz Calcium Tim 1.20 (1.12-1.32) mmol/l Magnesium 1.6 L (1.7-2.4) mg/dl Total Bilirubin 0.5 (0.2-1.0) mg/dl Direct Bilirubin 0.1 (0-0.2) mg/dl AST 21 (13-39) U/L ALT 11 (7-52) U/L Alkaline Phosphatase 89 (34-104) U/L Troponin I High Sens 4.9 (0-14) pg/ml Total Protein 6.4 (6.0-8.3) gm/dl Albumin 3.3 L (3.4-5.0) gm/dl Procalcitonin 1.50 H (0-0.5) ng/ml Urine Color Urine Appearance (Clear) Urine pH (4.5-7.5) Ur Specific Bucklin (1.000-1.030) Urine Protein (Negative) Urine Glucose (UA) (Negative) Urine Ketones (Negative) Urine Blood (Negative) Urine Nitrite (Negative) Urine Bilirubin (Negative) Urine Urobilinogen (Negative) Ur Leukocyte Esterase (Negative) Urine WBC (Auto) (0-5) /hpf Urine RBC (Auto) (0-2) /hpf U Hyaline Cast (Auto) (0-2) /lpf U Epithel Cells (Auto) (0-2) /hpf Urine Bacteria (Auto) (None Seen) Stl C. cayetanensis PCR (NotDetected) Stool Rotavirus A PCR (NotDetected) Stl Adenov F 40/41 PCR (NotDetected) Stool Astrovirus (PCR) (NotDetected) Stool Campylobacter PCR (NotDetected) Stl C. diff Tox B Gene (Neg) Stool Cryptosporidium PCR (NotDetected) Stl E.coli Shiga Tox PCR (NotDetected) Stl Enterotoxigenic E PCR (NotDetected) Stool EPEC (PCR) (NotDetected) Stool EAEC (PCR) (NotDetected) Stl E. histolytica PCR (NotDetected) Stool Giardia Lamblia PCR (NotDetected) Stool Salmonella PCR (NotDetected) Stool Sapovirus (PCR) (NotDetected) Stl P. shigelloides PCR (NotDetected) Stl Shigella/EIEC PCR (NotDetected) St Y.enterocolitica PCR (NotDetected) Stool Vibrio (PCR) (NotDetected) Stl Vibrio cholerae PCR (NotDetected) Stl Norovirus GI/GII PCR (NotDetected) Adenovirus (PCR) (NotDetected) B. pertussis DNA (PCR) (NotDetected) B.parapertussis DNA PCR (NotDetected) C. pneumoniae DNA (PCR) (NotDetected) Coronavirus OC43 (PCR) (NotDetected) Coronavirus HKU1 (PCR) (NotDetected) Coronavirus 229E (PCR) (NotDetected) SARS-CoV-2 (PCR) (NotDetected) Coronavirus NL63 (PCR) (NotDetected) Human Metapneumovir PCR (NotDetected) Influenza Type A (PCR) (NotDetected) Influenza Type B (PCR) (NotDetected) M. pneumoniae (PCR) (NotDetected) Parainfluenza 1 (PCR) (NotDetected) Parainfluenza 2 (PCR) (NotDetected) Parainfluenza 3 (PCR) (NotDetected) Parainfluenza 4 (PCR) (NotDetected) RSV (PCR) (NotDetected) Entero/Rhino (PCR) (NotDetected) 07/22/23 07/22/23 07/22/23 Range/Units 21:47 23:23 23:54 WBC (4.8-10.8) K/ul RBC (4.20-5.40) M/uL Hgb (12.0-16.0) g/dl POC Hgb (12.0-16.0) g/dl Hct (37.0-47.0) % POC Hct (37-47) % MCV (80.0-100.0) fL MCH (25.0-34.0) pg MCHC (32.0-36.0) g/dL RDW Std Deviation (36.4-46.3) fL RDW Coeff of Braxton (11.5-14.5) % Plt Count (130-400) K/uL MPV (9.4-12.4) fL Immature Gran % (Auto) % Neut % (Auto) % Lymph % (Auto) % [place] % (Auto) % Eos % (Auto) % Baso % (Auto) % Neut # (Auto) (1.40-6.50) K/uL Lymph # (Auto) (1.20-3.40) K/uL [place] # (Auto) (0.11-0.59) K/uL Eos # (Auto) (0.00-0.50) K/uL Baso # (Auto) (0.00-0.20) K/uL Immature Gran # (Auto) (0.01-0.20) K/uL PT (9.0-12.0) Seconds INR (0.9-1.1) APTT (21-31) Seconds PTT Ratio VBG pH 7.24 L (7.36-7.41) VBG pCO2 45 (38-50) mmHg VBG pO2 35 mmHg VBG HCO3 19 mmol/L VBG O2 Saturation < 60.0 % VBG Base Excess -8.0 mEq/L POC Sodium (135-144) mmol/L Sodium (136-145) mmol/L POC Potassium (3.3-5.0) mmol/L Potassium (3.5-5.1) mmol/L POC Chloride (101-112) mmol/L Chloride (98-107) mmol/L Carbon Dioxide (21-32) mmol/L POC Total CO2 (24-31) mmol/L Anion Gap (3-11) POC Anion Gap (16-25) mmol/L POC BUN (7-18) mg/dl BUN (6-23) mg/dl Creatinine (0.6-1.2) mg/dl POC Creatinine (0.6-1.3) mg/dl Est Cr Clr Drug Dosing ml/min Est GFR ( Amer) ml/min Est GFR (Non-Af Amer) ml/min BUN/Creatinine Ratio (10-20) Glucose (70-99(Fasting)) mg/dl POC Glucose (other) (70-99) mg/dl Lactate 1.2 (0.4-2.0) mmol/L Calcium (8.6-10.3) mg/dl POC Ioniz Calcium Tim (1.12-1.32) mmol/l Magnesium (1.7-2.4) mg/dl Total Bilirubin (0.2-1.0) mg/dl Direct Bilirubin (0-0.2) mg/dl AST (13-39) U/L ALT (7-52) U/L Alkaline Phosphatase (34-104) U/L Troponin I High Sens (0-14) pg/ml Total Protein (6.0-8.3) gm/dl Albumin (3.4-5.0) gm/dl Procalcitonin (0-0.5) ng/ml Urine Color Yellow Urine Appearance Clear (Clear) Urine pH 6.5 (4.5-7.5) Ur Specific Bucklin > 1.045 H (1.000-1.030) Urine Protein 1+ H (Negative) Urine Glucose (UA) Negative (Negative) Urine Ketones Negative (Negative) Urine Blood Negative (Negative) Urine Nitrite Negative (Negative) Urine Bilirubin Negative (Negative) Urine Urobilinogen Negative (Negative) Ur Leukocyte Esterase Negative (Negative) Urine WBC (Auto) 0-5 (0-5) /hpf Urine RBC (Auto) 3-5 H (0-2) /hpf U Hyaline Cast (Auto) 3-5 H (0-2) /lpf U Epithel Cells (Auto) 3-5 H (0-2) /hpf Urine Bacteria (Auto) None Seen (None Seen) Stl C. cayetanensis PCR Not Detected (NotDetected) Stool Rotavirus A PCR Not Detected (NotDetected) Stl Adenov F 40/41 PCR Not Detected (NotDetected) Stool Astrovirus (PCR) Not Detected (NotDetected) Stool Campylobacter PCR Not Detected (NotDetected) Stl C. diff Tox B Gene Negative Cdiff Gene (Neg) Stool Cryptosporidium PCR Not Detected (NotDetected) Stl E.coli Shiga Tox PCR Not Detected (NotDetected) Stl Enterotoxigenic E PCR Not Detected (NotDetected) Stool EPEC (PCR) Not Detected (NotDetected) Stool EAEC (PCR) Not Detected (NotDetected) Stl E. histolytica PCR Not Detected (NotDetected) Stool Giardia Lamblia PCR Not Detected (NotDetected) Stool Salmonella PCR Not Detected (NotDetected) Stool Sapovirus (PCR) Not Detected (NotDetected) Stl P. shigelloides PCR Not Detected (NotDetected) Stl Shigella/EIEC PCR Not Detected (NotDetected) St Y.enterocolitica PCR Not Detected (NotDetected) Stool Vibrio (PCR) Not Detected (NotDetected) Stl Vibrio cholerae PCR Not Detected (NotDetected) Stl Norovirus GI/GII PCR Not Detected (NotDetected) Adenovirus (PCR) (NotDetected) B. pertussis DNA (PCR) (NotDetected) B.parapertussis DNA PCR (NotDetected) C. pneumoniae DNA (PCR) (NotDetected) Coronavirus OC43 (PCR) (NotDetected) Coronavirus HKU1 (PCR) (NotDetected) Coronavirus 229E (PCR) (NotDetected) SARS-CoV-2 (PCR) (NotDetected) Coronavirus NL63 (PCR) (NotDetected) Human Metapneumovir PCR (NotDetected) Influenza Type A (PCR) (NotDetected) Influenza Type B (PCR) (NotDetected) M. pneumoniae (PCR) (NotDetected) Parainfluenza 1 (PCR) (NotDetected) Parainfluenza 2 (PCR) (NotDetected) Parainfluenza 3 (PCR) (NotDetected) Parainfluenza 4 (PCR) (NotDetected) RSV (PCR) (NotDetected) Entero/Rhino (PCR) (NotDetected) 07/22/23 Range/Units Unknown WBC (4.8-10.8) K/ul RBC (4.20-5.40) M/uL Hgb (12.0-16.0) g/dl POC Hgb (12.0-16.0) g/dl Hct (37.0-47.0) % POC Hct (37-47) % MCV (80.0-100.0) fL MCH (25.0-34.0) pg MCHC (32.0-36.0) g/dL RDW Std Deviation (36.4-46.3) fL RDW Coeff of Braxton (11.5-14.5) % Plt Count (130-400) K/uL MPV (9.4-12.4) fL Immature Gran % (Auto) % Neut % (Auto) % Lymph % (Auto) % [place] % (Auto) % Eos % (Auto) % Baso % (Auto) % Neut # (Auto) (1.40-6.50) K/uL Lymph # (Auto) (1.20-3.40) K/uL [place] # (Auto) (0.11-0.59) K/uL Eos # (Auto) (0.00-0.50) K/uL Baso # (Auto) (0.00-0.20) K/uL Immature Gran # (Auto) (0.01-0.20) K/uL PT (9.0-12.0) Seconds INR (0.9-1.1) APTT (21-31) Seconds PTT Ratio VBG pH (7.36-7.41) VBG pCO2 (38-50) mmHg VBG pO2 mmHg VBG HCO3 mmol/L VBG O2 Saturation % VBG Base Excess mEq/L POC Sodium (135-144) mmol/L Sodium (136-145) mmol/L POC Potassium (3.3-5.0) mmol/L Potassium (3.5-5.1) mmol/L POC Chloride (101-112) mmol/L Chloride (98-107) mmol/L Carbon Dioxide (21-32) mmol/L POC Total CO2 (24-31) mmol/L Anion Gap (3-11) POC Anion Gap (16-25) mmol/L POC BUN (7-18) mg/dl BUN (6-23) mg/dl Creatinine (0.6-1.2) mg/dl POC Creatinine (0.6-1.3) mg/dl Est Cr Clr Drug Dosing ml/min Est GFR ( Amer) ml/min Est GFR (Non-Af Amer) ml/min BUN/Creatinine Ratio (10-20) Glucose (70-99(Fasting)) mg/dl POC Glucose (other) (70-99) mg/dl Lactate (0.4-2.0) mmol/L Calcium (8.6-10.3) mg/dl POC Ioniz Calcium Tim (1.12-1.32) mmol/l Magnesium (1.7-2.4) mg/dl Total Bilirubin (0.2-1.0) mg/dl Direct Bilirubin (0-0.2) mg/dl AST (13-39) U/L ALT (7-52) U/L Alkaline Phosphatase (34-104) U/L Troponin I High Sens (0-14) pg/ml Total Protein (6.0-8.3) gm/dl Albumin (3.4-5.0) gm/dl Procalcitonin (0-0.5) ng/ml Urine Color Urine Appearance (Clear) Urine pH (4.5-7.5) Ur Specific [place] (1.000-1.030) Urine Protein (Negative) Urine Glucose (UA) (Negative) Urine Ketones (Negative) Urine Blood (Negative) Urine Nitrite (Negative) Urine Bilirubin (Negative) Urine Urobilinogen (Negative) Ur Leukocyte Esterase (Negative) Urine WBC (Auto) (0-5) /hpf Urine RBC (Auto) (0-2) /hpf U Hyaline Cast (Auto) (0-2) /lpf U Epithel Cells (Auto) (0-2) /hpf Urine Bacteria (Auto) (None Seen) Stl C. cayetanensis PCR (NotDetected) Stool Rotavirus A PCR (NotDetected) Stl Adenov F 40/41 PCR (NotDetected) Stool Astrovirus (PCR) (NotDetected) Stool Campylobacter PCR (NotDetected) Stl C. diff Tox B Gene (Neg) Stool Cryptosporidium PCR (NotDetected) Stl E.coli Shiga Tox PCR (NotDetected) Stl Enterotoxigenic E PCR (NotDetected) Stool EPEC (PCR) (NotDetected) Stool EAEC (PCR) (NotDetected) Stl E. histolytica PCR (NotDetected) Stool Giardia Lamblia PCR (NotDetected) Stool Salmonella PCR (NotDetected) Stool Sapovirus (PCR) (NotDetected) Stl P. shigelloides PCR (NotDetected) Stl Shigella/EIEC PCR (NotDetected) St Y.enterocolitica PCR (NotDetected) Stool Vibrio (PCR) (NotDetected) Stl Vibrio cholerae PCR (NotDetected) Stl Norovirus GI/GII PCR (NotDetected) Adenovirus (PCR) Not Detected (NotDetected) B. pertussis DNA (PCR) Not Detected (NotDetected) B.parapertussis DNA PCR Not Detected (NotDetected) C. pneumoniae DNA (PCR) Not Detected (NotDetected) Coronavirus OC43 (PCR) Not Detected (NotDetected) Coronavirus HKU1 (PCR) Not Detected (NotDetected) Coronavirus 229E (PCR) Not Detected (NotDetected) SARS-CoV-2 (PCR) Not Detected (NotDetected) Coronavirus NL63 (PCR) Not Detected (NotDetected) Human Metapneumovir PCR Not Detected (NotDetected) Influenza Type A (PCR) Not Detected (NotDetected) Influenza Type B (PCR) Not Detected (NotDetected) M. pneumoniae (PCR) Not Detected (NotDetected) Parainfluenza 1 (PCR) Not Detected (NotDetected) Parainfluenza 2 (PCR) Not Detected (NotDetected) Parainfluenza 3 (PCR) Not Detected (NotDetected) Parainfluenza 4 (PCR) Not Detected (NotDetected) RSV (PCR) Not Detected (NotDetected) Entero/Rhino (PCR) Not Detected (NotDetected) Imaging Data Attestation: I personally reviewed and interpreted this imaging study as follows: My Impression: Chest x-ray negative. Airway clear. No pneumothorax. No consolidation. No cardiomegaly or cephalization.. No free air under the diaphragm. No fractures of the skeletal structures. Radiologist's Impression: Abdomen/Pelvis CT 07/22/23 21:16 Exam(s): CT ABDOMEN + PELVIS With Contrast IV Amt: 115 ml optiray 320 EXAM: CT Abdomen and Pelvis With Intravenous Contrast CLINICAL HISTORY: Reason for exam: nvd hypotensive rigid abdomen. TECHNIQUE: Axial computed tomography images of the abdomen and pelvis with intravenous contrast. CTDI is 49.53 mGy and DLP is 1687.91 mGy-cm. Automated exposure control was utilized for the study. A dose lowering technique was utilized adhering to the principles of ALARA. CONTRAST: Patient received 115 ml optiray 320 of IV contrast COMPARISON: No relevant prior studies available. FINDINGS: Lung bases: Unremarkable. No mass. No consolidation. Mediastinum: Small hiatal hernia. ABDOMEN: Liver: Unremarkable. No mass. Gallbladder and bile ducts: Cholelithiasis without CT findings to suggest acute cholecystitis. No biliary dilatation. Pancreas: Unremarkable. No mass. No ductal dilation. Spleen: Unremarkable. No splenomegaly. Adrenals: Unremarkable. No mass. Kidneys and ureters: Unremarkable. No solid mass. No hydronephrosis. Stomach and bowel: No bowel obstruction. Fluid-filled small bowel. Fluid-filled colon with pancolonic wall thickening. PELVIS: Appendix: Appendix not visualized. Bladder: Bladder wall thickening, cystitis or incomplete distention. Reproductive: Hysterectomy. ABDOMEN and PELVIS: Intraperitoneal space: Unremarkable. No intra-abdominal free air or significant free fluid. Bones/joints: No acute fracture. No dislocation. Soft tissues: Left mastectomy. Right breast implant. Postoperative changes of the low anterior abdominal wall may reflect previous abdominoplasty or TRAM flap. Fluid collection within or just subjacent to the deep abdominal wall musculature and extending into the pre- vesicular space of Retzius, measuring 2.7 x 5.6 x 17 cm, possibly postoperative hematoma/seroma. Multiple regional surgical clips. Subcutaneous drainage catheter extends to the overlying tissues. Vasculature: Atherosclerosis. No aortic aneurysm. Lymph nodes: Unremarkable. No enlarged lymph nodes. IMPRESSION: 1. Postoperative changes of the low anterior abdominal wall may reflect previous abdominoplasty or TRAM flap. Fluid collection within or just subjacent to the deep abdominal wall musculature and extending into the pre-vesicular space of Retzius, measuring 2.7 x 5.6 x 17 cm, possibly postoperative hematoma/seroma. Multiple regional surgical clips. Subcutaneous drainage catheter extends through the overlying tissues, not entering this collection. 2. Fluid-filled small bowel. Fluid-filled colon with pancolonic wall thickening. Findings suggest colitis/enterocolitis. 3. Bladder wall thickening, cystitis or incomplete distention. Correlate with urinalysis. Electronically signed by: Long Rachel M.D. 07/22/23 22:33 PM Chest X-Ray 07/22/23 21:16 XR chest 1V portable CLINICAL HISTORY: Sepsis TECHNIQUE: Single frontal radiograph of the chest was obtained. Comparison: None available at the time of this dictation. FINDINGS: No lines and tubes are seen. The cardiomediastinal silhouette is normal. The lungs are clear. No evidence of pleural effusion or pneumothorax. IMPRESSION: No acute abnormalities and in particular no radiographic evidence of pneumonia. ACT 112: Negative or not required by law. Electronically signed by: Wesley Morgan M.D. 07/22/2023 10:27 PM Chest CTA 07/22/23 21:17 Exam(s): CTA CHEST IV Amt: 115 ml optiray 320 EXAM: CT Angiography Chest With Intravenous Contrast CLINICAL HISTORY: Reason for exam: hypoxia recent surg. TECHNIQUE: Axial computed tomographic angiography images of the chest with intravenous contrast. CTDI is 49.53 mGy and DLP is 1687.91 mGy-cm. Automated exposure control was utilized for the study. A dose lowering technique was utilized adhering to the principles of ALARA. MIP reconstructed images were created and reviewed. COMPARISON: No relevant prior studies available. FINDINGS: Pulmonary arteries: Unremarkable. No pulmonary embolism. Aorta: No acute findings. No aortic aneurysm or dissection. Lungs: Subpleural fibrotic changes anterior left upper lobe may represent postradiation changes. No consolidation or mass. Pleural space: Trace left pleural effusion. No pneumothorax. Heart: Coronary artery atherosclerosis. No cardiomegaly. No significant pericardial effusion. No evidence of RV dysfunction. Mediastinum: Small hiatal hernia. Bones/joints: No acute fracture. No dislocation. Soft tissues: Left mastectomy and left breast reconstruction, possibly with TRAM flap. Right breast implant. Lymph nodes: Unremarkable. No adenopathy. IMPRESSION: Trace left pleural effusion. No pulmonary embolism. Electronically signed by: Long Rachel M.D. 07/22/23 22:41 PM ECG Data Attestation: I personally reviewed and interpreted this ECG as follows: Additional Comments: Sinus tachycardia with a rate of 121. HI 114 QRS [address] elevation or ST depression. There is significant artifact secondary to patient movement. [facility] Narrative 2116: The patient was evaluated in room C9. A complete history and physical exam was performed Cardiac monitoring: An order was placed for continuous cardiac monitoring. The monitor shows a rate of 120 with sinus rhythm interpreted by me EMS delivered 1 L of normal saline to the patient. Patient hypoxic on arrival in the emergency department, 2 L nasal cannula was applied which improved the patient's oxygen saturation. Patient is still mildly hypotensive, sepsis protocols initiated. 0: Patient's lactic acid 5.8. Zosyn ordered for the patient. 2257: Vital signs stable supplemental oxygen via nasal cannula. Labs show white blood cell count of 20.01. Hemoglobin 11.2. VBG shows a venous pH of 7.24. Urinalysis and stool studies are still pending. BioFire negative. CTA of the chest negative for PE. CT of the abdomen pelvis shows postoperative change flow tear anterior abdominal wall with fluid collection within or just subjacent to the deep abdominal wall musculature extending into the prevesicular space of Retzius measuring 2.7 x 5.6 x 17 cm possibly postoperative hematoma/seroma. The subcutaneous drainage catheters are not in the fluid collection. There is fluids filled small bowel and fluid-filled colon with a pain colonic wall thickening suggestive of a colitis/enterocolitis. Discussed the case with Dr. Doan at [facility] the patient's plastic surgeon. I read him the report of the CT of the abdomen pelvis verbatim. He states he does not think that the fluid collection is an abscess because there is no rim enhancement and thinks that the fluid collection as it is expected given the patient's postoperative course. He states that the patient does not need to be transferred at this time and the patient can be admitted here. 2328: Vital signs stable supplemental oxygen via nasal cannula. Stool BioFire C. difficile negative. Discussed case with Dr. Polk [facility] hospitalist who requested a surgical consultation to be completed by the surgery team at this facility prior to him admitting the patient. 0030: Vital signs stable on supplemental oxygen via nasal cannula. Repeat lactic acid within normal limits. Patient was evaluated by general surgery team Matthew Bunch on-call for Dr. Gill. They agreed that the patient can be admitted to the medicine service. Dr. Polk notified and will admit the patient to his service. Impression & Plan Sepsis, Hypoxia, Abdominal wall seroma Discharge Plan Visit Data Chief Complaint: Syncope (Near Syncope) Stated Complaint: N/V, Diarrhea, Near Syncope ED Provider: Joe Garcia Discharge Problem: Sepsis, Hypoxia, Abdominal wall seroma Patient Disposition: Admitted As Inpatient Forms Stand Alone Forms: My [facility] Prescriptions Prescriptions: No Action multivitamin Tablet 1 tab PO DAILY acetaminophen [Tylenol] 325 mg Tablet 975 mg PO TID Rx Instructions: Take am ,noon, and before hs aspirin [Aspir-Low] 81 mg Tablet,Delayed Release (Dr/Ec) 81 mg PO DAILY tramadol 50 mg tablet 50 mg PO Q6 PRN (Reason: Pain) docusate sodium 100 mg Capsule 100 mg PO BID gabapentin 300 mg capsule 300 mg PO DAILY PRN (Reason: Pain) gabapentin 300 mg capsule 600 mg PO HS Right Step Vitamins 27 mg iron- 0.8 mg Tablet 1 tab PO DAILY lisinopril 5 mg tablet 2.5 mg PO HS letrozole 2.5 mg tablet 2.5 mg PO DAILY ondansetron 4 mg tablet,disintegrating 4 mg translingual Q6 PRN (Reason: Nausea) rosuvastatin 10 mg tablet 10 mg PO QAM bupropion HCl 150 mg tablet extended release 24 hr 150 mg PO QAM Referrals Referrals: Agustin Olivares MD [Primary Care Provider] -
[2023-07-23 01:44] LABS: Thyroid Stimulating Hormone 1.329 uIu/ml (0.300-4.500)
[2023-07-23] MEDS: DAPTOmycin 275 MG in SYRINGE 0 ML IV SCH (01:57)
[2023-07-23 04:32] LABS: Basophils # (auto) 0.04 K/uL (0.00-0.20); Basophils % (auto) 0.2 %; Eosinophils # (auto) 0.21 K/uL (0.00-0.50); Eosinophils % (auto) 1.3 %; Hematocrit (blood only) 32.8 % (37.0-47.0); Hemoglobin 10.7 g/dl (12.0-16.0); Immature Granulocytes # (auto) 0.11 K/uL (0.01-0.20); Immature Granulocytes % (auto) 0.7 %; Lymphocytes # (auto) 0.64 K/uL (1.20-3.40); Lymphocytes % (auto) 3.9 %; Mean Corpuscular Hgb Conc 32.6 g/dL (32.0-36.0); Mean Corpuscular Volume 95.1 fL (80.0-100.0); Mean Platelet Volume 8.6 fL (9.4-12.4); Monocytes # (auto) 1.22 K/uL (0.11-0.59); Monocytes % (auto) 7.5 %; Neutrophils # (auto) 14.01 K/uL (1.40-6.50); Neutrophils % (auto) 86.4 %; Platelet Count 762 K/uL (130-400); RDW Coefficient of Variation 15.5 % (11.5-14.5); RDW Standard Deviation 53.1 fL (36.4-46.3); Red Blood Count 3.45 M/uL (4.20-5.40); White Blood Count 16.23 K/ul (4.8-10.8)
[2023-07-23 04:48] LABS: BUN Creatinine Ratio 12.7 (10-20); Calcium 8.8 mg/dl (8.6-10.3); Creatinine Clr Calc Pharmacy 53.6 ml/min; Est GFR (African American) 58.1 ml/min; Est GFR (Non-African American) 50.1 ml/min; Magnesium 2.2 mg/dl (1.7-2.4); Potassium 4.1 mmol/L (3.5-5.1)
[2023-07-23] MEDS: PIPERACILLIN/TAZOBACTAM 4.5 GM in DEXTROSE 5% MINI-B 100 ML IV SCH (05:57)
--- NOTE | 2023-07-23 07:27 | Electrocardiogram Report ---
Test Reason : Blood Pressure : / mmHG Vent. Rate : 121 BPM Atrial Rate : 121 BPM P-R Int : 114 ms QRS Dur : 068 ms QT Int : 292 ms P-R-T Axes : 031 -55 072 degrees QTc Int : 414 ms Sinus tachycardia Left anterior fascicular block Poor R wave progression, consider anterior HI vs. lead placement vs. LVH Abnormal ECG No previous ECGs available Confirmed by Amos Engle ([id number]) on 07/23/2023 7:27:09 AM Referred By: REFERRED SELF Confirmed By:Urban Engle
[2023-07-23 07:35] LABS: Estimated Average Glucose 100 mg/dl; Hemoglobin A1C 5.1 % (4.5-5.6)
[2023-07-23] MEDS ORDERED: ROSUVASTATIN CALCIUM 10 MG TAB PO SCH (09:00)
[2023-07-23] MEDS ORDERED: MULTIVITAMIN TAB PO SCH (09:00)
[2023-07-23] MEDS: traMADol HCL 50 MG TABLET PO PRN (09:42)
[2023-07-23] MEDS: buPROPion XL 150 MG TABCR PO SCH (09:43)
[2023-07-23] MEDS: LETROZOLE 2.5 MG TAB PO SCH (09:43)
[2023-07-23] MEDS: ACETAMINOPHEN 325 MG TAB PO SCH (09:43)
[2023-07-23] MEDS: PRENATAL VITAMIN 1 TAB PO SCH (09:43)
--- NOTE | 2023-07-23 10:57 | Surgery Progress Note ---
Date of Service July 23, 2023 Assessment & Plan (1) Abdominal wall seroma: Plan: no surgical intervention indicated will continue to follow along (2) Colitis: Admission and Anticipated Discharge Date Admission Date: July 23, 2023 Subjective pt seen. feeling well at this point. no more dizziness. minimal pain. no more diarrhea. Physical Exam Physical Exam: alert. nad drains with serous fluid abd: soft. nt. minimal distension Results & Data Vital Signs (Past 12 Hours) Vital Signs Temp Pulse Pulse Resp BP BP Pulse Ox 07/23/23 08:30 96 H 30 H 110/64 94 07/23/23 08:00 98 H 17 07/23/23 07:30 96 H 07/23/23 07:09 97 H 17 07/23/23 06:03 98 H 18 124/65 96 07/23/23 05:57 37.2 C 07/23/23 05:38 103 H 24 129/66 07/23/23 04:19 98 H 18 119/66 97 07/23/23 02:06 99 H 07/23/23 01:06 105 H 22 113/69 99 07/23/23 00:00 111 H 21 153/73 H 100 07/22/23 23:30 121/103 H O2 Del Method O2 Flow Rate 07/23/23 08:30 2 07/23/23 08:00 07/23/23 07:30 07/23/23 07:09 07/23/23 06:03 Nasal Cannula 2 07/23/23 05:57 07/23/23 05:38 07/23/23 04:19 Nasal Cannula 2 07/23/23 02:06 07/23/23 01:06 Nasal Cannula 2 07/23/23 00:00 Nasal Cannula 2 07/22/23 23:30 PG Care Time/CCT Total # of Minutes Spent Total Time Spent with Patient: Total time spent is greater than 50% in coordination of care (as documented) at patient's floor/unit and/or counseling patient: Coding Level of Care Code 38595 SUB INP/OBS CARE 2/35MIN Diagnoses Abdominal wall seroma S30.1XXA Colitis K52.9
[2023-07-23] MEDS: SODIUM CHLORIDE 0.9% 1,000 ML IV SCH (11:05)
[2023-07-23] MEDS: CALCIUM CARBONATE 500 MG CHEWABLE TAB PO STA (21:13)
[2023-07-23] MEDS: PROMETHAZINE HCL 6.25 MG in SODIUM CHLORIDE 0.9% 50 ML IV PRN (21:13)
[2023-07-23] MEDS: GABAPENTIN 300 MG CAP PO SCH (23:21)
[2023-07-24] MEDS: SODIUM CHLORIDE 0.9% 1,000 ML IV ONE (06:26)
[2023-07-24 06:43] LABS: Basophils # (auto) 0.05 K/uL (0.00-0.20); Basophils % (auto) 0.3 %; Eosinophils # (auto) 0.22 K/uL (0.00-0.50); Eosinophils % (auto) 1.5 %; Hematocrit (blood only) 28.6 % (37.0-47.0); Hemoglobin 9.2 g/dl (12.0-16.0); Immature Granulocytes % (auto) 0.7 %; Lymphocytes # (auto) 0.85 K/uL (1.20-3.40); Lymphocytes % (auto) 5.6 %; Mean Corpuscular Hemoglobin 30.8 pg (25.0-34.0); Mean Corpuscular Hgb Conc 32.2 g/dL (32.0-36.0); Mean Corpuscular Volume 95.7 fL (80.0-100.0); Mean Platelet Volume 9.1 fL (9.4-12.4); Monocytes # (auto) 1.02 K/uL (0.11-0.59); Monocytes % (auto) 6.7 %; Neutrophils # (auto) 12.93 K/uL (1.40-6.50); Neutrophils % (auto) 85.2 %; Platelet Count 670 K/uL (130-400); RDW Standard Deviation 51.9 fL (36.4-46.3); Red Blood Count 2.99 M/uL (4.20-5.40); White Blood Count 15.17 K/ul (4.8-10.8)
[2023-07-24 07:11] LABS: BUN Creatinine Ratio 12.2 (10-20); Calcium 8.8 mg/dl (8.6-10.3); Creatinine Clr Calc Pharmacy 79.8 ml/min; Est GFR (African American) 93.8 ml/min; Est GFR (Non-African American) 80.9 ml/min; Potassium 3.4 mmol/L (3.5-5.1)
--- NOTE | 2023-07-24 08:56 | Surgery Progress Note ---
Date of Service July 24, 2023 Assessment & Plan (1) Colitis: Plan: I do believe the issue is most certainly GI and not related to her surgical site. Her white blood cell count is coming down although she is continuing to have some fever spikes. Stool cultures/C. difficile were negative. Could still probably consider adding oral Flagyl empirically. I will add some cholestyramine to help with the diarrhea. I think with what appears to be a clear GI issue aspirating the seroma would be higher risk than reward and would defer that at this time. (2) Abdominal wall seroma: Admission and Anticipated Discharge Date Admission Date: July 23, 2023 Subjective pt seen. "bad night". Having extremely frequent bowel movements and even having some stool incontinence. She is having some generalized abdominal cramping and pain. Physical Exam Constitutional: WD/WN, vitals as above no acute distress and not ill appearing Eyes: PERRL, conjunctivae normal, anicteric sclerae EOM intact bilaterally ENMT: external ear and nose normal, oropharynx normal Ears: no hearing impairment Neck: trachea midline, no thyromegaly Respiratory: normal respiratory effort; no respiratory distress and does not use accessory muscles Cardiovascular: Rate/Rhythm: regular rate and regular rhythm Gastrointestinal (Abdomen): Soft. Mild distention. Diffuse but mild tenderness. Her incision looks great with no signs of erythema drainage or warmth. Skin: no rashes, warm and dry Psychiatric: Orientation: alert, oriented x 3 and cooperative Results & Data Vital Signs (Past 12 Hours) Vital Signs Temp Pulse Pulse Pulse Resp BP Pulse Ox 07/24/23 07:44 37.7 C H 107 H 16 146/77 H 95 07/24/23 07:00 107 H 07/24/23 05:07 36.6 C 103 H 18 122/68 07/24/23 04:00 07/24/23 03:08 36.6 C 90 18 124/71 95 07/23/23 23:35 36.8 C 100 H 20 120/68 94 07/23/23 22:07 115 H Pulse Ox O2 Del Method O2 Del Method 07/24/23 07:44 Room Air 07/24/23 07:00 07/24/23 05:07 Room Air 07/24/23 04:00 94 Room Air 07/24/23 03:08 Room Air 07/23/23 23:35 Room Air 07/23/23 22:07 PG Care Time/CCT Total # of Minutes Spent Total Time Spent with Patient: Total time spent is greater than 50% in coordination of care (as documented) at patient's floor/unit and/or counseling patient: Coding Level of Care Code 90638 SUB INP/OBS CARE 35MIN Diagnoses Colitis K52.9 Abdominal wall seroma S30.1XXA
[2023-07-24] MEDS ORDERED: metroNIDAZOLE 500 MG TAB PO SCH (09:00)
[2023-07-24] MEDS: CHOLESTYRAMINE LIGHT 4 GM PKT PO SCH (10:38)
[2023-07-24] MEDS: POTASSIUM CHLORIDE CRTAB 20 MEQ TABCR PO STA (10:38)
--- NOTE | 2023-07-24 12:05 | CT Scan Report ---
ABDOMEN AND PELVIS CT WITHOUT CONTRAST CT DOSE: 1207.74 mGy.cm HISTORY: Acute generalized abdominal pain with reported abdominal fluid collection. ff up abdominal fluid collection TECHNIQUE: Multiaxial CT images of the abdomen and pelvis were performed without contrast. A dose lo wering technique was utilized adhering to the principles of ALARA. COMPARISON STUDY: 07/22/2023. FINDINGS: Partially imaged right breast implant. Trace right and small left pleural effusions. Minima l bibasilar atelectasis. No pneumoperitoneum. The unenhanced spleen, pancreas and adrenal glands are unremarkable. Cholelithiasis with gallbladder wall thickening and trace pericholecystic fluid. Unrema rkable liver. Mild nonspecific bilateral perinephric stranding. No hydronephrosis. Probable punctate nonobstructing calculus in the inferior pole right kidney. Minimal contrast within the urinary bladder lumen. Urina ry bladder wall thickening with partial distention. Hysterectomy. Atherosclerosis of aorta without an eurysm. No lymphadenopathy. Small hiatal hernia with distal esophageal wall thickening. Colonic wall thickening with air-fluid le vels extends from the distal transverse colon into the rectum. Adjacent inflammatory stranding with t race ascites. Scattered small bowel air-fluid levels are also noted. No CT evidence of acute appendic itis. Postoperative changes of anterior abdominal wall. Suboptimal evaluation of the previously noted left anterior abdominal wall collection measuring approximately 3.2 x 2.0 x 7 cm on image 256 series 3 extending into the space of Retzius, generally unchanged. Surgical drainage catheter within the an terior subcutaneous tissues. No acute fracture. IMPRESSION: 1. Findings of a nonspecific enterocolitis. There is progressive wall thickening within the distal co star and rectum with adjacent inflammatory stranding and trace ascites. 2. No bowel obstruction or pneumoperitoneum. 3. Postoperative changes of the anterior abdominal wall with unchanged left rectus fluid collection. 4. Cholelithiasis with equivocal findings of acute cholecystitis. Findings could be correlated with u ltrasound. 5. Trace right and small left pleural effusions. 6. Additional findings as above. ACT 112: Negative or not required by law. The above report was generated using voice recognition software. It may contain grammatical, syntax o r spelling errors. Dictated: 07/24/2023 11:38 AM Transcribed: 07/24/2023 11:53 AM Roman [id number] Kamar [id number] Electronically signed by: Jim Leal M.D. 07/24/2023 12:03 PM
--- NOTE | 2023-07-24 14:11 | Hospitalist Progress Note ---
Date of Service July 24, 2023 Assessment & Plan (1) Severe sepsis: Plan: SIRS plus ARF plus lactic acidosis Patient clinical better and lactic acidosis resolved after initial intervention at the ER Possible sources : Diarrheal illness postop fluid collection (recent abdominal surgery for left breast reconstruction) repeat stool panel PCR, C diff repeat CT abd/pelvis continue IV Dapto + Zosyn ID consulted appreciate Gen Surgery recommendations hypertension, BP currently stable, patient initially hypotensive at home hyperlipidemia on statin Rx bronchial asthma, patient currently without pulmonary symptoms Left breast cancer status post surgery status post chemoradiation status post recent reconstruction currently on letrozole Anemia, hemoglobin improved from postop hemoglobin of 9 from last month, likely from hemoconcentration Hg 11--> 10--> 9.2 past tobacco abuse DVT prophylaxis. SCDs Re: Possible abdominal wall hematoma as per CT report Full code Disposition pending Admission and Anticipated Discharge Date Admission Date: July 23, 2023 Subjective ff up for diarrhea, etc seen resting in bed, sleeping, not in distress still having diarrhea, has mild lower abdominal discomfort no fever/chills appetite is poor no chest pain, dyspnea, palpitations, dizziness no other new symptoms Review of Systems Review of Systems: all noted and negative except for above Physical Exam Physical Exam: General- oriented x 3, not in distress, speaks in sentences with no effort or accessory muscle use Eyes- anicteric Neck- no JVD Lungs- clear breath sounds bilaterally, no rales/wheezes Heart- normal rate, regular rhythm; no murmurs Abdomen- normal bowel sounds, nondistended, soft, (+) mild lower abdominal tend erness BL MELQUIADES drain in place: serosanguinous output Extremities- no pretibial edema, no calf tenderness Neuro- alert, oriented x 3; no gross focal neurologic deficits Skin- warm & dry Results & Data Results & Data Vital Signs (Past 12 Hours) Vital Signs Temp Pulse Pulse Pulse Resp BP Pulse Ox 07/24/23 11:37 36.5 C 98 H 16 138/79 95 07/24/23 07:50 07/24/23 07:44 37.7 C H 107 H 16 146/77 H 95 07/24/23 07:00 107 H 07/24/23 05:07 36.6 C 103 H 18 122/68 07/24/23 04:00 07/24/23 03:08 36.6 C 90 18 124/71 95 Pulse Ox O2 Del Method O2 Del Method 07/24/23 11:37 Room Air 07/24/23 07:50 Room Air 07/24/23 07:44 Room Air 07/24/23 07:00 07/24/23 05:07 Room Air 07/24/23 04:00 94 Room Air 07/24/23 03:08 Room Air all noted and reviewed including below
[2023-07-24 14:48] LABS: A calco-baum cmplx NotReported Not Detected (NotDetected); Bact fragilis Not Reported Not Detected (NotDetected); Blood Culture Id Panel See PCR Comment (NotDetected); C auris Not Reported Not Detected (NotDetected); Calbicans Not Reported Not Detected (NotDetected); Candida glabrata Not Reported Not Detected (NotDetected); Candida krusei Not Reported Not Detected (NotDetected); Cneoformans/gatti Not Reported Not Detected (NotDetected); Cparapsilosis Not Reported Not Detected (NotDetected); E cloacae compx Not Reported Not Detected (NotDetected); Efaecalis Not Reported Not Detected (NotDetected); Efaecium Not Reported Not Detected (NotDetected); Enterobacterales Not Reported Not Detected (NotDetected); Escherichia coli Not Reported Not Detected (NotDetected); H influenzae Not Reported Not Detected (NotDetected); K aerogenes Not Reported Not Detected (NotDetected); Koxytoca Not Reported Not Detected (NotDetected); Kpneumoniae grp Not Reported Not Detected (NotDetected); Lmonocyt Not Reported Not Detected (NotDetected); N meningitidis Not Reported Not Detected (NotDetected); P aeruginosa Not Reported Not Detected (NotDetected); Proteus spp Not Reported Not Detected (NotDetected); Salmonella spp Not Reported Not Detected (NotDetected); Smarcescens Not Reported Not Detected (NotDetected); Staph lugdunensis Not Reported Not Detected (NotDetected); Staph spp. Not Reported DETECTED (NotDetected); Staphaureus Not Reported Not Detected (NotDetected); Staphepi Not Reported Not Detected (NotDetected); Stenmaltophilia Not Reported Not Detected (NotDetected); Strep agal(GrpB) Not Reported Not Detected (NotDetected); Strep pneum Not Reported Not Detected (NotDetected); Strep pyog (GrpA) Not Reported Not Detected (NotDetected); Strep spp Not Reported Not Detected (NotDetected)
[2023-07-24 15:16] LABS: Staphylococcus spp. DETECTED (NotDetected)
[2023-07-24] MEDS: ADVANCED PROBIOTIC 625 MG CAPSULE PO SCH (16:27)
[2023-07-25] MEDS: CALCIUM CARBONATE 500 MG CHEWABLE TAB PO STA (04:09)
--- NOTE | 2023-07-25 08:00 | Surgery Progress Note ---
Date of Service July 25, 2023 Assessment & Plan (1) Colitis: Plan: Was started on Questran yesterday, pt reports no change in loose stool with reports emesis On clear liquids C/o abd pain superior and inferior transverse incision 6-8/10 pain No erythema, drainage, or open areas to incision Has been afebrile since yesterday AM WBC remain elevated 15 (16) CT scan yesterday readin. Findings of a nonspecific enterocolitis. There is progressive wall thickening within the distal colon and rectum with adjacent inflammatory stranding and trace ascites. Continue IV zosyn , consult was placed for Infectious Disease (2) Abdominal wall seroma: Plan: no abd erythema or ecchymosis noted Patient is not a surgical candidate for this facility if drainage of seroma is indicated per ID, then she would need to be transferred to her operating surgeon at [facility]. as above. pt still with n/v and diarrhea. symptoms c/w enterocolitis seen on CT. no evidence of infected seroma or cholecystitis. will await ID consult. if aspiration of the seroma recommended, we would recommend transfer pt to [facility] where her recent surgery was performed. no surgical indications. will follow along from [facility]. call if any questions. Admission and Anticipated Discharge Date Admission Date: July 23, 2023 Subjective pt reports feeling "ok" abdominal pain 6-8/10 Denies fever/chills +diarrhea and emesis over night Review of Systems Constitutional: no fever and no chills Gastrointestinal: + abdominal pain, + vomiting and + diarr hea/loose stools Physical Exam Physical Exam: alert oriented Constitutional: cooperative; no acute distress Respiratory: normal respiratory effort and able to speak in complete sentences; no respiratory distress Gastrointestinal (Abdomen): Inspection/Auscultation: + abdominal surgical incision and + abdominal surgical drain present Percussion/Palpation: + abdomen tender Results & Data Vital Signs (Past 12 Hours) Vital Signs Temp Pulse Pulse Resp BP Pulse Ox Pulse Ox 07/25/23 04:08 94 07/25/23 03:10 98.2 F 92 H 18 146/85 H 95 07/24/23 23:25 98.1 F 92 H 18 147/84 H 95 07/24/23 22:01 97 H O2 Del Method O2 Del Method 07/25/23 04:08 Room Air 07/25/23 03:10 Room Air 07/24/23 23:25 Room Air 07/24/23 22:01 Diagnostic Findings [place], [place] [phone] CT Scan Report Patient: PRIYANKA HUNTER Admit Date: 07/23/23 MR#: [id number] Address1: [address] [place] [address] Acct ID:[id number] Address2: Date: [address] Zip: [place] [address] Age: 72 Location: 2W Sex: F Room/Bed: [facility] Att Phy: Wolfgang Ruggiero MD Diagnosis: SEPSIS Karen Phy: Agustin Olivares MD Service Date: 07/24/23 Fam Phy: Rosalino Doan MD Interpreting Phy: Jim LealAdmit Phy: Adal Salcedo MD Ordering Phy: Wolfgang Ruggiero MD cc: ~ ABDOMEN AND PELVIS CT WITHOUT CONTRAST CT DOSE: 1207.74 mGy.cm HISTORY: Acute generalized abdominal pain with reported abdominal fluid collection. ff up abdominal fluid collection TECHNIQUE: Multiaxial CT images of the abdomen and pelvis were performed without contrast. A dose lowering technique was utilized adhering to the principles of ALARA. COMPARISON STUDY: 07/22/2023. FINDINGS: Partially imaged right breast implant. Trace right and small left pleural effusions. Minimal bibasilar atelectasis. No pneumoperitoneum. The unenhanced spleen, pancreas and adrenal glands are unremarkable. Cholelithiasis with gallbladder wall thickening and trace pericholecystic fluid. Unremarkable liver. Mild nonspecific bilateral perinephric stranding. No hydronephrosis. Probable punctate nonobstructing calculus in the inferior pole right kidney. Minimal contrast within the urinary bladder lumen. Urinary bladder wall thickening with partial distention. Hysterectomy. Atherosclerosis of aorta without aneurysm. No lymphadenopathy. Small hiatal hernia with distal esophageal wall thickening. Colonic wall thickening with air-fluid levels extends from the distal transverse colon into the rectum. Adjacent inflammatory stranding with trace ascites. Scattered small bowel air-fluid levels are also noted. No CT evidence of acute appendicitis. Postoperative changes of anterior abdominal wall. Suboptimal evaluation of the previously noted left anterior abdominal wall collection measuring approximately 3.2 x 2.0 x 7 cm on image 256 series 3 extending into the space of Retzius, generally unchanged. Surgical drainage catheter within the anterior subcutaneous tissues. No acute fracture. IMPRESSION: 1. Findings of a nonspecific enterocolitis. There is progressive wall thickening within the distal colon and rectum with adjacent inflammatory stranding and trace ascites. 2. No bowel obstruction or pneumoperitoneum. 3. Postoperative changes of the anterior abdominal wall with unchanged left rectus fluid collection. 4. Cholelithiasis with equivocal findings of acute cholecystitis. Findings could be correlated with ultrasound. 5. Trace right and small left pleural effusions. 6. Additional findings as above. ACT 112: Negative or not required by law. The above report was generated using voice recognition software. It may contain grammatical, syntax or spelling errors. Dictated: 07/24/2023 11:38 AM Transcribed: 07/24/2023 11:53 AM Roman [id number] [email or web address] [id number] Electronically signed by: Jim Leal M.D. 07/24/2023 12:03 PM Dictated: 07/24/23 1138 Transcribed: 07/24/23 1153 Results CBC w Diff Results: RBC 2.99 M/uL (4.20-5.40) L 07/24/23 WBC 15.17 K/ul (4.8-10.8) H 07/24/23 Hgb 9.2 g/dl (12.0-16.0) L 07/24/23 Hct 28.6 % (37.0-47.0) L 07/24/23 MCV 95.7 fL (80.0-100.0) 07/24/23 MCH 30.8 pg (25.0-34.0) 07/24/23 MCHC 32.2 g/dL (32.0-36.0) 07/24/23 RDW Standard Deviation 51.9 fL (36.4-46.3) H 07/24/23 RDW Coefficient of Variation 15.0 % (11.5-14.5) H 07/24/23 Plt Count 670 K/uL (130-400) H 07/24/23 MPV 9.1 fL (9.4-12.4) L 07/24/23 Neutrophils (%) (Auto) 85.2 % 07/24/23 Lymphocytes (%) (Auto) 5.6 % 07/24/23 Monocytes # (Auto) 1.02 K/uL (0.11-0.59) H 07/24/23 Eosinophils # (Auto) 0.22 K/uL (0.00-0.50) 07/24/23 Immature Granulocyte % (Auto) 0.7 % 07/24/23 Neutrophils # (Auto) 12.93 K/uL (1.40-6.50) H 07/24/23 Lymphocytes # (Auto) 0.85 K/uL (1.20-3.40) L 07/24/23 Monocytes # (Auto) 1.02 K/uL (0.11-0.59) H 07/24/23 Eosinophils # (Auto) 0.22 K/uL (0.00-0.50) 07/24/23 Basophils # (Auto) 0.05 K/uL (0.00-0.20) 07/24/23 Immature Granulocyte # (Auto) 0.10 K/uL (0.01-0.20) 4 PG Care Time/CCT Total # of Minutes Spent Total Time Spent with Patient: Total time spent is greater than 50% in coordination of care (as documented) at patient's floor/unit and/or counseling patient: Coding Level of Care Code 17308 SUB INP/OBS CARE 235MIN Diagnoses Colitis K52.9 Abdominal wall seroma S30.1XXA
[2023-07-25 10:21] LABS: Basophils # (auto) 0.07 K/uL (0.00-0.20); Basophils % (auto) 0.4 %; Eosinophils # (auto) 0.56 K/uL (0.00-0.50); Eosinophils % (auto) 3.3 %; Hematocrit (blood only) 32.8 % (37.0-47.0); Hemoglobin 10.8 g/dl (12.0-16.0); Immature Granulocytes # (auto) 0.32 K/uL (0.01-0.20); Immature Granulocytes % (auto) 1.9 %; Lymphocytes # (auto) 1.04 K/uL (1.20-3.40); Lymphocytes % (auto) 6.1 %; Mean Corpuscular Hemoglobin 30.6 pg (25.0-34.0); Mean Corpuscular Hgb Conc 32.9 g/dL (32.0-36.0); Mean Corpuscular Volume 92.9 fL (80.0-100.0); Mean Platelet Volume 9.2 fL (9.4-12.4); Monocytes # (auto) 0.84 K/uL (0.11-0.59); Neutrophils % (auto) 83.3 %; Platelet Count 738 K/uL (130-400); RDW Coefficient of Variation 15.4 % (11.5-14.5); RDW Standard Deviation 52.5 fL (36.4-46.3); Red Blood Count 3.53 M/uL (4.20-5.40); White Blood Count 16.93 K/ul (4.8-10.8)
[2023-07-25 10:27] LABS: Calcium 8.8 mg/dl (8.6-10.3); Magnesium 1.7 mg/dl (1.7-2.4); Potassium 3.6 mmol/L (3.5-5.1)
[2023-07-25 10:32] LABS: BUN Creatinine Ratio 12.3 (10-20); Creatinine Clr Calc Pharmacy 103.6 ml/min; Est GFR (African American) 107.3 ml/min; Est GFR (Non-African American) 92.6 ml/min
[2023-07-25] MEDS: CALCIUM CARBONATE 500 MG CHEWABLE TAB PO PRN (15:41)
[2023-07-25] MEDS: ondansetron HCL 6 MG in DEXTROSE 5% 50 ML IV PRN (16:49)
--- NOTE | 2023-07-25 17:51 | Hospitalist Progress Note ---
Date of Service July 25, 2023 Assessment & Plan (1) Severe sepsis: Plan: SIRS plus ARF plus lactic acidosis Patient clinical better and lactic acidosis resolved after initial intervention at the ER Possible sources : Diarrheal illness postop fluid collection (recent abdominal surgery for left breast reconstruction) repeat stool panel PCR, C diff repeat CT abd/pelvis continue IV Dapto + Zosyn ID consulted appreciate Gen Surgery recommendations 07/24 Still having diarrhea Unable to collect second stool sample for confirmation testing because of patient's incontinence of urine Will give empiric treatment for C. difficile, vancomycin every 6 hours IV fluids KUB Will consult GI service Currently on daptomycin plus Zosyn General surgery on board ID consulted Postprocedural seroma of abd wall following breast reconstructive surgery General surgery on board, does not recommend drainage of fluid at this point ID recommendations pending hypertension, BP currently stable, patient initially hypotensive at home hyperlipidemia on statin Rx bronchial asthma, patient currently without pulmonary symptoms Left breast cancer status post surgery status post chemoradiation status post recent reconstruction currently on letrozole Anemia, hemoglobin improved from postop hemoglobin of 9 from last month, likely from hemoconcentration Hg 11--> 10--> 9.2 past tobacco abuse DVT prophylaxis. SCDs Re: Possible abdominal wall hematoma as per CT report Full code Disposition pending Admission and Anticipated Discharge Date Admission Date: July 23, 2023 Subjective Follow-up for nausea vomiting, diarrhea, etc. Seen resting in bed, comfortable, not in distress Still having persistent diarrhea, watery, nonbloody Has intermittent generalized abdominal cramping No other new symptoms Review of Systems Review of Systems: all noted and negative except for above Physical Exam Physical Exam: General- oriented x 3, not in distress, speaks in sentences with no effort or accessory muscle use Eyes- anicteric Neck- no JVD Lungs- clear breath sounds bilaterally, no rales/wheezes Heart- normal rate, regular rhythm; no murmurs Abdomen- normal bowel sounds, nondistended, Somewhat from especially above incision site, no tenderness Extremities- no pretibial edema, no calf tenderness Neuro- alert, oriented x 3; no gross focal neurologic deficits Skin- warm & dry Results & Data Results & Data Vital Signs (Past 12 Hours) Vital Signs Temp Pulse Resp BP Pulse Ox O2 Del Method 07/25/23 14:40 36.5 C 108 H 18 143/86 H 98 Room Air 07/25/23 11:22 37.5 C 98 H 18 147/84 H 95 Room Air 07/25/23 07:59 36.9 C 78 18 129/83 96 Room Air 07/25/23 07:47 Room Air
[2023-07-25] MEDS: CHERRY SYRUP 5 ML UDP PO SCH (18:29)
[2023-07-25] MEDS: VANCOMYCIN HCL 125 MG/2.5ML SOLN PO SCH (18:29)
[2023-07-25] MEDS: D5NSS + 20MEQ KCL 20 MEQ/1,000 ML BAG IV SCH (18:29)
--- NOTE | 2023-07-25 18:37 | XRay Report ---
KUB CLINICAL HISTORY: Nausea and vomiting. FINDINGS: An AP, portable, supine abdominal radiograph is correlated with abdominal CT dated 4. Again seen is gaseous distention of the small bowel loops which measure up to 4.6 cm. There is als o gas seen in the colon. No evidence of intraperitoneal free air is identified on this supine image. Surgical clips project over the left mid to lower abdomen. There are no abnormal abdominal calcificat ions. The skeletal structures are osteopenic and appear intact. IMPRESSION: 1. Again seen is gaseous distention of the small bowel loops. When correlated with yesterday's abdomi nal CT scan this is likely related to an enterocolitis. Ileus or developing obstruction could have a similar appearance but was not shown by CT. Correlate clinically. 2. No evidence of intraperitoneal free air is seen on this supine image. Electronically signed by: Harvinder Tavarez M.D. 07/25/2023 6:34 PM
[2023-07-25] MEDS: PROMETHAZINE HCL 6.25 MG in SODIUM CHLORIDE 0.9% 50 ML IV STA (21:10)
[2023-07-25] MEDS: METOPROLOL TARTRATE 1 MG/ML VIAL IV STA (21:54)
[2023-07-25] MEDS: MAGNESIUM SULFATE / D5W 1 GM/100 ML BAG IV SCH (21:55)
[2023-07-26] MEDS: PROMETHAZINE HCL 12.5 MG in SODIUM CHLORIDE 0.9% 50 ML IV PRN (04:18)
[2023-07-26 06:37] LABS: Basophils # (auto) 0.07 K/uL (0.00-0.20); Basophils % (auto) 0.4 %; Eosinophils # (auto) 0.03 K/uL (0.00-0.50); Eosinophils % (auto) 0.2 %; Hemoglobin 11.1 g/dl (12.0-16.0); Immature Granulocytes # (auto) 0.41 K/uL (0.01-0.20); Immature Granulocytes % (auto) 2.4 %; Lymphocytes # (auto) 1.28 K/uL (1.20-3.40); Lymphocytes % (auto) 7.6 %; Mean Corpuscular Hemoglobin 30.9 pg (25.0-34.0); Mean Corpuscular Hgb Conc 33.6 g/dL (32.0-36.0); Mean Corpuscular Volume 91.9 fL (80.0-100.0); Mean Platelet Volume 8.8 fL (9.4-12.4); Monocytes % (auto) 6.5 %; Neutrophils # (auto) 13.93 K/uL (1.40-6.50); Neutrophils % (auto) 82.9 %; Platelet Count 791 K/uL (130-400); RDW Coefficient of Variation 15.2 % (11.5-14.5); Red Blood Count 3.59 M/uL (4.20-5.40); White Blood Count 16.82 K/ul (4.8-10.8)
[2023-07-26 06:54] LABS: Calcium 8.7 mg/dl (8.6-10.3); Creatinine Clr Calc Pharmacy 109.4 ml/min; Est GFR (African American) 109.3 ml/min; Est GFR (Non-African American) 94.3 ml/min; Potassium 3.2 mmol/L (3.5-5.1)
[2023-07-26] MEDS: ACETAMINOPHEN 1,000 MG/100 ML VIAL IV PRN (10:09)
[2023-07-26] MEDS: POTASSIUM CHLORIDE 20 MEQ/15 ML UDC PO STA (10:23)
--- NOTE | 2023-07-26 10:29 | Gastrointestinal Consultation ---
Date of Consultation July 26, 2023 Assessment & Plan (1) Colitis: 72 year old female with history of hypertension, hyperlipidemia, bronchial asthma, left breast cancer s/p chemo/radiation and reconstruction w/ recent admission to [facility] under Plastic Surgery service for left breast reconstruction with RADHA flap admitted to [facility] w/ SIRS/Sepsis, nausea/vomiting and diarrhea - GI was asked to evaluate for nausea/vomiting. She reports this AM she is resolved without nausea/vomiting, no further BM in 24 hours. On examination she has hypoactive bowel sounds. Would recommend repeat KUB to rule out any ileus. May continue anti-emetics PRN. May continue her diet as tolerated. Stool studies without obvious source. We discussed if her symptoms returned, the next step could include a diagnostic endoscopic evaluation. After our discussion, she is not agreeable to this. I spent a total of 60 minutes on the date of service in review of patient's record, and previously obtained information in person and appropriate medical visit, discussion and education of plan, with patient and/or caregiver, placing orders for tests/referral/procedures as medically necessary and documentation of pertinent clinical information in patient's medical records for their visit today. Supervising Physician Co-Signing Physician Notes Clinical picture is suggestive of nonspecific acute enterocolitis. Possibly ileus. Continue supportive care. Tolerates clear liquid Advance diet as tolerated. History of Present Illness Reason for Consultation: nausea/vomiting Requesting Physician: Monik Attending Physician: Wolfgang Ruggiero MD History of Present Illness 72 year old female with history of hypertension, hyperlipidemia, bronchial asthma, left breast cancer s/p chemo/radiation and reconstruction w/ recent admission to [facility] under Plastic Surgery service for left breast reconstruction with RADHA flap admitted to [facility] w/ SIRS/Sepsis, nausea/vomiting and diarrhea. GI was asked to evaluate for nausea/vomiting. Pt was seen and evaluated, chart reviewed. She notes this AM she is starting to feel better. Reports her abd pain is improving, no further nausea/vomiting in 24 hours and last BM was yesterday. WBC 17 On Dapto and Zosyn Blood cult 07/21 coag negative staph HGB 11.1 Tbili 0.5 AST 21 ALT 11 ALKP 89 Does not appear a lipase was ordered Stool culture negative C.diff also negative KUB 07/25/23: Again seen is gaseous distention of the small bowel loops. When correlated with yesterday's abdominal CT scan this is likely related to an enterocolitis. Ileus or developing obstruction could have a similar appearance but was not shown by CT. Correlate clinically.No evidence of intraperitoneal free air is seen on this supine image. CTAP 07/23/23: 1. Findings of a nonspecific enterocolitis. There is progressive wall thickening within the distal colon and rectum with adjacent inflammatory stranding and trace ascites. No bowel obstruction or pneumoperitoneum. Postoperative changes of the anterior abdominal wall with unchanged left rectus fluid collection.Cholelithiasis with equivocal findings of acute cholecystitis. Findings could be correlated with ultrasound. Trace right and small left pleural effusions. Additional findings as above. CTAP 07/22/23: Postoperative changes of the low anterior abdominal wall may reflect previous abdominoplasty or TRAM flap. Fluid collection within or just subjacent to the deep abdominal wall musculature and extending into the pre-vesicular space of Retzius, measuring 2.7 x 5.6 x 17 cm, possibly postoperative hematoma/seroma. Multiple regional surgical clips. Subcutaneous drainage catheter extends through the overlying tissues, not entering this collection. 2. Fluid-filled small bowel. Fluid-filled colon with pancolonic wall thickening. Findings suggest colitis/enterocolitis. 3. Bladder wall thickening, cystitis or incomplete distention. Correlate with urinalysis. Has never had an EGD/Colonoscopy Reports negative Cologuard arranged through her PCP No family history of GI malignancy No family history of IBD Allergies Allergy/AdvReac Type Severity Reaction Status Date / Time nicotine [From [facility]] AdvReac Nightmare Verified 07/22/23 23:59 Home Medications Medication Instructions Recorded Confirmed Type acetaminophen 325 mg tablet 650 mg PO TID PRN Pain 07/22/23 07/23/23 History (Tylenol) aspirin 81 mg tablet,delayed 81 mg PO DAILY 07/22/23 07/22/23 History release bupropion HCl 150 mg 24 hr tablet, 150 mg PO QAM 07/22/23 07/22/23 History extended release docusate sodium 100 mg capsule 100 mg PO BID 07/22/23 07/22/23 History gabapentin 300 mg capsule 300 mg PO DAILY PRN Pain 07/22/23 07/22/23 History gabapentin 300 mg capsule 600 mg PO HS 07/22/23 07/22/23 History letrozole 2.5 mg tablet 2.5 mg PO DAILY 07/22/23 07/22/23 History lisinopril 5 mg tablet 2.5 mg PO HS 07/22/23 07/22/23 History multivitamin 1 tab PO DAILY 07/22/23 07/22/23 History ondansetron 4 mg disintegrating 4 mg translingual Q6 PRN Nausea 07/22/23 07/22/23 History tablet vitamins-iron fumarate 27 1 tab PO DAILY 07/22/23 07/22/23 History mg iron-folic acid 0.8 mg tablet rosuvastatin 10 mg tablet 10 mg PO QAM 07/22/23 07/22/23 History tramadol 50 mg tablet 50 mg PO Q6 PRN Pain 07/22/23 07/22/23 History Patient History Medical History Breast cancer HLD (hyperlipidemia) HTN (hypertension) CKD (chronic kidney disease) Surgical History H/O breast reconstruction Social History Smoking Status: Former smoker Hx Substance Use: No Preferred Language: Nepali Communication Ability: Effective Telecasting Engineer Required: No Beliefs That Will Affect Care: None Current Living Situation: Spouse Feels Safe at Home: Yes Assistive Devices: Cane and Walker Review of Systems Review of Systems: All other findings negative except as noted in HPI. Physical Exam Constitutional: WD/WN, vitals as above Respiratory: normal respiratory effort, lungs clear to auscultation Cardiovascular: Rate/Rhythm: regular rate and regular rhythm Gastrointestinal (Abdomen): Inspection/Auscultation: abdomen normal to inspection Percussion/Palpation: + abdomen tender (mild she reports improved from yesterday) and abdomen soft Bowel sounds present but hypoactive Skin: no rashes, warm and dry Results & Data Vital Signs (Past 12 Hours) Vital Signs Temp Pulse Pulse Resp BP Pulse Ox O2 Del Method 07/26/23 08:08 36.8 C 91 H 16 150/86 H 96 Room Air 07/26/23 04:08 36.8 C 102 H 20 139/88 97 Room Air 07/25/23 23:57 37.2 C 98 H 20 166/99 H 94 Room Air 07/25/23 22:23 86 Laboratory Results 07/26/23 07/25/23 Range/Units 06:01 09:27 WBC 16.82 H (4.8-10.8) K/ul RBC 3.59 L (4.20-5.40) M/uL Hgb 11.1 L (12.0-16.0) g/dl Hct 33.0 L (37.0-47.0) % MCV 91.9 (80.0-100.0) fL MCH 30.9 (25.0-34.0) pg MCHC 33.6 (32.0-36.0) g/dL RDW Std Deviation 51.0 H (36.4-46.3) fL RDW Coeff of Braxton 15.2 H (11.5-14.5) % Plt Count 791 H (130-400) K/uL MPV 8.8 L (9.4-12.4) fL Immature Gran % (Auto) 2.4 % Neut % (Auto) 82.9 % Lymph % (Auto) 7.6 % Briscoe % (Auto) 6.5 % Eos % (Auto) 0.2 % Baso % (Auto) 0.4 % Neut # (Auto) 13.93 H (1.40-6.50) K/uL Lymph # (Auto) 1.28 (1.20-3.40) K/uL Briscoe # (Auto) 1.10 H (0.11-0.59) K/uL Eos # (Auto) 0.03 (0.00-0.50) K/uL Baso # (Auto) 0.07 (0.00-0.20) K/uL Immature Gran # (Auto) 0.41 H (0.01-0.20) K/uL Sodium 137 135 L (136-145) mmol/L Potassium 3.2 L 3.6 (3.5-5.1) mmol/L Chloride 106 107 (98-107) mmol/L Carbon Dioxide 24 18 L (21-32) mmol/L Anion Gap 7 10 (3-11) BUN 7 7 (6-23) mg/dl Creatinine 0.54 L 0.57 L (0.6-1.2) mg/dl Est Cr Clr Drug Dosing 109.4 103.6 ml/min Est GFR ( Amer) 109.3 107.3 ml/min Est GFR (Non-Af Amer) 94.3 92.6 ml/min BUN/Creatinine Ratio 13.0 12.3 (10-20) Glucose 162 H 96 (70-99(Fasting)) mg/dl Calcium 8.7 8.8 (8.6-10.3) mg/dl Magnesium 2.0 1.7 (1.7-2.4) mg/dl PG Care Time/CCT Total # of Minutes Spent Total Time Spent with Patient: Total time spent is greater than 50% in coordination of care (as documented) at patient's floor/unit and/or counseling patient: Coding Level of Care Code 48267 INT INP/OBS CARE MIN Diagnoses Colitis K52.9
[2023-07-26] MEDS: POTASSIUM CHLORIDE / WTR 10 MEQ/100 ML PLCT IV SCH (11:36)
--- NOTE | 2023-07-26 14:13 | Infectious Disease Consult ---
Date of Service July 26, 2023 Telehealth Information I performed this visit using a real-time telehealth connection between my location and the patients location ([facility]). After connecting through interactive tele-video, patient was identified by name and date of and/or wristband check.Patient (or authorized healthcare human resources representative) was informed that this was a telemedicine visit and it was being conducted confidentially over secure lines. My office door was closed and no one else was present in the room with me.Patient (or authorized healthcare human resources representative) provided consent to proceed with the visit, expressed an understanding of privacy and security of the telemedicine visit, and gave permission to have a hospital human resources representative in the room in order to assist with the visit and to conduct portions of the visit, as needed. I informed the patient (or authorized healthcare human resources representative) that I reviewed their record and presented the opportunity for them to ask any questions regarding the visit today. The patient agreed to participate. Assessment & Plan (1) Colitis: Plan: I reviewed the notes by the surgical service. They feel that the patient's primary problem is GI in nature. The CT scan mentions colitis. By tomorrow, the patient will have been empirically treated for both a skin/soft tissue infection and a non-specific bacterial colitis (contact me if this is not correct). If the patient's symptoms/leukocytosis are not improving, then I would re-visit the collection. History of Present Illness History of Present Illness The patient was admitted for N/V/D in the context of a recent surgery (performed at [facility]). Upon arrival to [facility], the patient was evaluate by the [facility] surgical team. They did not think that any surgical intervention was required. The patient reports that her symptoms have slowed down - not totally resolved. She denies any issues with her incision sites. Allergies Allergy/AdvReac Type Severity Reaction Status Date / [facility] AdvReac Nightmare Verified 07/22/23 23:59 Home Medications Medication Instructions Recorded Confirmed Type acetaminophen 325 mg tablet 650 mg PO TID PRN Pain 07/22/23 07/23/23 History (Tylenol) aspirin 81 mg tablet,delayed 81 mg PO DAILY 07/22/23 07/22/23 History release bupropion HCl 150 mg 24 hr tablet, 150 mg PO QAM 07/22/23 07/22/23 History extended release docusate sodium 100 mg capsule 100 mg PO BID 07/22/23 07/22/23 History gabapentin 300 mg capsule 300 mg PO DAILY PRN Pain 07/22/23 07/22/23 History gabapentin 300 mg capsule 600 mg PO HS 07/22/23 07/22/23 History letrozole 2.5 mg tablet 2.5 mg PO DAILY 07/22/23 07/22/23 History lisinopril 5 mg tablet 2.5 mg PO HS 07/22/23 07/22/23 History multivitamin 1 tab PO DAILY 07/22/23 07/22/23 History ondansetron 4 mg disintegrating 4 mg translingual Q6 PRN Nausea 07/22/23 07/22/23 History tablet vitamins-iron fumarate 27 1 tab PO DAILY 07/22/23 07/22/23 History mg iron-folic acid 0.8 mg tablet rosuvastatin 10 mg tablet 10 mg PO QAM 07/22/23 07/22/23 History tramadol 50 mg tablet 50 mg PO Q6 PRN Pain 07/22/23 07/22/23 History Patient History Medical History Breast cancer HLD (hyperlipidemia) HTN (hypertension) CKD (chronic kidney disease) Surgical History H/O breast reconstruction Social History Smoking Status: Former smoker Hx Substance Use: No Preferred Language: Mohawk Communication Ability: Effective Die Maker Trim Required: No Beliefs That Will Affect Care: None Current Living Situation: Spouse Feels Safe at Home: Yes Assistive Devices: Cane and Walker Review of Systems As reviewed in HPI; a complete ROS was otherwise negative Physical Exam Vitals: as above (or see EMR) Exam limited due to constraints of telemedicine Gen/Constitutional: appears at stated age, NAD, nontoxic Head: AT, NC Eyes: sclera anicteric, no conjunctival injection ENT: MMM, trachea midline Card: appears to be well-perfused Resp: not tachypneic, nml effort, symmetric chest rise, no accessory muscle use Derm: no visible diaphoresis, no visible rash, no visible jaundice Results & Data Vital Signs (Past 12 Hours) Vital Signs Temp Pulse Pulse Resp BP Pulse Ox O2 Del Method 07/26/23 11:51 36.4 C L 91 H 18 152/83 H 96 Room Air 07/26/23 09:00 91 H 07/26/23 08:08 36.8 C 91 H 16 150/86 H 96 Room Air 07/26/23 04:08 36.8 C 102 H 20 139/88 97 Room Air Laboratory Results SEE EMR Diagnostic Findings [address] [place] [address] / Director: Timbo Preston M.D. Clinical Laboratory Report Name: PRIYANKA HUNTER Acct: [id number] Status: ADM IN : 1950 [facility] Date: 07/23/23 Age: 72 Sex: F Dis Date: Loc: [address] Rm/Bed: W258-1 Spec: [id number] Collected: 07/22/23 Received: 07/22/[address]: Joe Garcia MD Source: Blood OV Order: Ordered: Blood Culture Comments: Comment Default is separate sites, same time Procedure Result Verified Site Blood Culture Aerobic Preliminary 07/24/23 No growth in Aerobic bottle after 48 hours. Blood Culture Anaerobic Preliminary 07/24/23 No growth in Anaerobic bottle after 48 hours. Name: PRIYANKA HUNTER : 1950 PAGE 1 Printed: 07/26/23 1413 END OF RE PORT [facility] [address] [place] [address] / Director: Timbo Preston M.D. Clinical Laboratory Report Name: PRIYANKA HUNTER Acct: [id number] Status: ADM IN : 1950 [facility] Date: 07/23/23 Age: 72 Sex: F Dis Date: Loc: [address]/Bed: [facility] Spec: [id number] Collected: 07/22/23 Received: 07/22/[address]: Joe Garcia MD Source: Blood OV Order: Ordered: Blood Culture Comments: Comment Default is separate sites, same time Blood culture drawn venously from Right Arm. Procedure Result Verified Site Blood Culture Aerobic Preliminary 07/25/23-0102 No growth in Aerobic bottle after 48 hours. Blood Culture Anaerobic Preliminary 07/26/23-1220 Organism 1 Coag neg staph not lugdunensis Sens No Sensitivities to Follow Blood Culture PCR Panel If viewing in EMR, results available under LAB Serology tab. One set of two positive. Isolation does not necessarily mean infection. No susceptibility tests performed. Contact microbiology laboratory ([phone]) if further studies are indicated. Critical result called to Ban Vazquez On 07/24/23 at 1516 by Isaura Jaramillo and results were verbalized back. Name: PRIYANKA HUNTER : 1950 PAGE 1 Printed: 07/26/23 1414 END OF REPORT [facility] [address] [place] [address] / Director: Timbo Preston M.D. Clinical Laboratory Report Name: PRIYANKA HUNTER Acct: [id number] Status: ADM IN : 1950 [facility] Date: 07/23/23 Age: 72 Sex: F Dis Date: Loc: [address] Rm/Bed: W258-1 Spec: [id number] Collected: 07/24/23 Received: 07/24/[address]: Wolfgang Ruggiero MD Copy To: Adal Salcedo MD Devitt, Sean M., MD Source: Blood OV Order: Ordered: Blood Culture Comments: Comment Default is separate sites, same time Blood culture drawn venously from Right Arm. Procedure Result Verified Site Blood Culture Aerobic Preliminary 07/25/23-1799 No growth in Aerobic bottle after 24 hours. Blood Culture Anaerobic Preliminary 07/25/23-1799 No growth in Anaerobic bottle after 24 hours. Name: PRIYANKA HUNTER : 1950 PAGE 1 Printed: 07/26/23 1414 END OF REPORT [address] [place] [address] / Director: Timbo Preston M.D. Clinical Laboratory Report Name: PRIYANKA HUNTER Acct: [id number] Status: ADM IN : 1950 [facility] Date: 07/23/23 Age: 72 Sex: F Dis Date: Loc: [address]/Bed: W258-1 Spec: [id number] Collected: 07/24/23 Received: 07/24/23-[address]: Wolfgang Ruggiero MD Copy To: Adal Salcedo MD Devitt, Sean M., MD Source: Blood OV Order: Ordered: Blood Culture Comments: Comment Default is separate sites, same time Blood culture drawn venously from Right Hand. Procedure Result Verified Site Blood Culture Aerobic Preliminary 07/25/23-1800 No growth in Aerobic bottle after 24 hours. Blood Culture Anaerobic Final 07/26/23-010 Test not performed Name: PRIYANKA HUNTER : 1950 PAGE 1 Printed: 07/26/23 2666 END OF REPORT
--- NOTE | 2023-07-26 14:23 | Hospitalist Progress Note ---
Date of Service July 26, 2023 Assessment & Plan (1) Severe sepsis: Plan: Secondary to presumed C. difficile colitis Abdominal wall fluid collection, status post reconstructive breast surgery with abdominal flap SIRS plus ARF plus lactic acidosis Patient clinical better and lactic acidosis resolved after initial intervention at the ER initial stool panel PCR, C diff: Negative Second stool panel PCR, C. difficile, unable to be collected secondary to urinary incontinence CT abdomen/pelvis: 1. Postoperative changes of the low anterior abdominal wall may reflect previous abdominoplasty or TRAM flap. Fluid collection within or just subjacent to the deep abdominal wall musculature and extending into the pre-vesicular space of Retzius, measuring 2.7 x 5.6 x 17 cm, possibly postoperative hematoma/seroma. Multiple regional surgical clips. Subcutaneous drainage catheter extends through the overlying tissues, not entering this collection. 2. Fluid-filled small bowel. Fluid-filled colon with pancolonic wall thickening. Findings suggest colitis/enterocolitis. 3. Bladder wall thickening, cystitis or incomplete distention. Correlate with urinalysis. Repeat CT abdomen pelvis: No increase in fluid collection Patient was having persistent nausea vomiting, diarrhea Although initial stool panel was negative, elected to treat with empiric vancomycin p.o. for presumed C. difficile colitis last night Patient's diarrhea seems to have resolved Nausea and vomiting also improving Continue empiric vancomycin p.o. for now for possible C. difficile colitis Continue IV fluids Clear liquid diet GI consulted Also on IV daptomycin plus Zosyn in light of abdominal fluid collection, possibly infected General surgery consulted, no plans for drainage at this point ID consulted, awaiting recommendations Postprocedural seroma of Abdominal wall following breast reconstructive surgery General surgery on board, does not recommend drainage of fluid at this point ID recommendations pending Hypertension, BP currently stable, patient initially hypotensive at home Hyperlipidemia on statin Rx Bronchial asthma, patient currently without pulmonary symptoms Left breast cancer status post surgery status post chemoradiation status post recent reconstruction currently on letrozole Anemia, hemoglobin improved from postop hemoglobin of 9 from last month, likely from hemoconcentration Hg 11--> 10--> 9.2--> 11.1 past tobacco abuse DVT prophylaxis. Lovenox subcu daily Full code Disposition pending Lives at home with family Next Admission and Anticipated Discharge Date Admission Date: July 23, 2023 Subjective Follow-up for colitis, abdominal wall fluid collection status post breast reconstructive surgery with abdominal flap, etc. Seen resting in bed, sleeping but comfortable States she feels better compared to yesterday No diarrhea since last night Abdominal discomfort improving, still having some nausea No fevers or chills No other new symptoms Review of Systems Review of Systems: all noted and negative except for above Physical Exam Physical Exam: General- oriented x 3, not in distress, speaks in sentences with no effort or accessory muscle use Eyes- anicteric Neck- no JVD Lungs- clear breath sounds bilaterally, no rales/wheezes Heart- normal rate, regular rhythm; no murmurs Abdomen- normal bowel sounds, nondistended, soft, nontender Incision site healing well, no bleeding or discharge Extremities- no pretibial edema, no calf tenderness Neuro- alert, oriented x 3; no gross focal neurologic deficits Skin- warm & dry Results & Data Results & Data Vital Signs (Past 12 Hours) Vital Signs Temp Pulse Pulse Resp BP Pulse Ox O2 Del Method 07/26/23 11:51 36.4 C L 91 H 18 152/83 H 96 Room Air 07/26/23 09:00 91 H 07/26/23 08:08 36.8 C 91 H 16 150/86 H 96 Room Air 07/26/23 04:08 36.8 C 102 H 20 139/88 97 Room Air all noted and reviewed including below
[2023-07-26] MEDS: PANTOprazole 40 MG in SYRINGE 0 ML IV SCH (17:16)
[2023-07-26] MEDS ORDERED: Nursing to Pharmacy Communication SCH (20:15)
[2023-07-26] MEDS: ENOXAPARIN INJ 40 MG/0.4 ML SYR SQ SCH (21:12)
[2023-07-27] MEDS ORDERED: Nursing to Pharmacy Communication SCH (03:15)
[2023-07-27 06:44] LABS: Basophils # (auto) 0.09 K/uL (0.00-0.20); Basophils % (auto) 0.8 %; Eosinophils % (auto) 4.2 %; Hematocrit (blood only) 29.9 % (37.0-47.0); Hemoglobin 9.5 g/dl (12.0-16.0); Immature Granulocytes # (auto) 0.49 K/uL (0.01-0.20); Immature Granulocytes % (auto) 4.1 %; Lymphocytes # (auto) 1.91 K/uL (1.20-3.40); Lymphocytes % (auto) 16.1 %; Mean Corpuscular Hemoglobin 30.4 pg (25.0-34.0); Mean Corpuscular Hgb Conc 31.8 g/dL (32.0-36.0); Mean Corpuscular Volume 95.5 fL (80.0-100.0); Monocytes # (auto) 0.86 K/uL (0.11-0.59); Monocytes % (auto) 7.3 %; Neutrophils # (auto) 8.01 K/uL (1.40-6.50); Neutrophils % (auto) 67.5 %; Nucleated RBC # (auto) 0.02 K/uL (0.00-0.12); Nucleated RBC % (auto) 0.2 %; Platelet Count 632 K/uL (130-400); RDW Standard Deviation 55.1 fL (36.4-46.3); Red Blood Count 3.13 M/uL (4.20-5.40); White Blood Count 11.86 K/ul (4.8-10.8)
[2023-07-27 06:48] LABS: Calcium 8.3 mg/dl (8.6-10.3); Creatinine Clr Calc Pharmacy 98.2 ml/min; Est GFR (African American) 105.5 ml/min; Est GFR (Non-African American) 91.1 ml/min; Magnesium 1.6 mg/dl (1.7-2.4); Potassium 3.5 mmol/L (3.5-5.1)
--- NOTE | 2023-07-27 10:43 | Gastroenterology Progress Note ---
Date of Service July 27, 2023 Assessment & Plan (1) Colitis: Plan: 72 year old female with history of hypertension, hyperlipidemia, bronchial asthma, left breast cancer s/p chemo/radiation and reconstruction w/ recent admission to [facility] [place] under Plastic Surgery service for left breast reconstruction with RADHA flap admitted to [facility] w/ SIRS/Sepsis, nausea/vomiting and diarrhea - GI was asked to evaluate for nausea/vomiting. She was seen by ID, plan to continue course of ABX for non-specific bacterial colitis and soft tissue infection. She is beginning to clinically improve, notes 2 loose stools in the last 24 hours. She remains mildly distended, AM KUB ordered. Please begin a course of QID liquid Carafate for 10 days and she is noted some heartburn symptoms. I spent a total of 40 minutes on the date of service in review of patient's record, and previously obtained information in person and appropriate medical visit, discussion and education of plan, with patient and/or caregiver, placing orders for tests/referral/procedures as medically necessary and documentation of pertinent clinical information in patient's medical records for their visit today. Admission and Anticipated Discharge Date Admission Date: July 23, 2023 Supervising Physician Co-Signing Physician Notes I examined the patient and reviewed patient's chart , laboratory data and imaging studies. I agree with with assessment and plan of care as suggested by advanced practice provider. Clinical presentation is most consistent with ileus, possibly enteritis. Continues to have abdominal distention but feels better. No vomiting. Less diarrhea. Slightly worsening of anemia, WBC is improving. Continue supportive care. Antibiotics as per ID. Advance diet as tolerated. Subjective Pt was seen and evaluated, chart reviewed. Was evaluated by ID yesterday - plan to complete course of ABX for colitis. WBC is downtrending KUB this AM pending She notes she is feeling better. Pain is less severe. Bloating is less severe. Moving bowels. Semi-formed/loose stool this AM. No black or bloody stools. Having some acid reflux. Review of Systems Review of Systems: All other findings negative except as noted in HPI. Physical Exam Constitutional: WD/WN, vitals as above Respiratory: normal respiratory effort, lungs clear to auscultation Cardiovascular: Rate/Rhythm: regular rate and regular rhythm Gastrointestinal (Abdomen): Inspection/Auscultation: + abdomen distended (present but less distended that yesterday) Percussion/Palpation: + abdomen tender (generalized discomfort ); no guarding and abdomen not rigid Skin: no rashes, warm and dry Results & Data Results & Data Vital Signs (Past 12 Hours) Vital Signs Temp Pulse Resp BP Pulse Ox O2 Del Method 07/27/23 08:30 36.7 C 102 H 18 147/86 H 94 Room Air 07/27/23 04:36 36.6 C 99 H 20 133/79 95 Room Air 07/26/23 23:08 36.5 C 103 H 18 134/84 96 Room Air Laboratory Results 07/27/23 Range/Units 05:43 WBC 11.86 H (4.8-10.8) K/ul RBC 3.13 L (4.20-5.40) M/uL Hgb 9.5 L (12.0-16.0) g/dl Hct 29.9 L (37.0-47.0) % MCV 95.5 (80.0-100.0) fL MCH 30.4 (25.0-34.0) pg MCHC 31.8 L (32.0-36.0) g/dL RDW Std Deviation 55.1 H (36.4-46.3) fL RDW Coeff of Braxton 16.0 H (11.5-14.5) % Plt Count 632 H (130-400) K/uL MPV 9.0 L (9.4-12.4) fL Immature Gran % (Auto) 4.1 % Neut % (Auto) 67.5 % Lymph % (Auto) 16.1 % Plumas % (Auto) 7.3 % Eos % (Auto) 4.2 % Baso % (Auto) 0.8 % Neut # (Auto) 8.01 H (1.40-6.50) K/uL Lymph # (Auto) 1.91 (1.20-3.40) K/uL Pl[place] # (Auto) 0.86 H (0.11-0.59) K/uL Eos # (Auto) 0.50 (0.00-0.50) K/uL Baso # (Auto) 0.09 (0.00-0.20) K/uL Immature Gran # (Auto) 0.49 H (0.01-0.20) K/uL Absolute Nucleated RBC 0.02 (0.00-0.12) K/uL Nucleated RBC % (auto) 0.2 % Sodium 140 (136-145) mmol/L Potassium 3.5 (3.5-5.1) mmol/L Chloride 111 H (98-107) mmol/L Carbon Dioxide 23 (21-32) mmol/L Anion Gap 6 (3-11) BUN 6 (6-23) mg/dl Creatinine 0.60 (0.6-1.2) mg/dl Est Cr Clr Drug Dosing 98.2 ml/min Est GFR ( Amer) 105.5 ml/min Est GFR (Non-Af Amer) 91.1 ml/min BUN/Creatinine Ratio 10.0 (10-20) Glucose 114 H (70-99(Fasting)) mg/dl Calcium 8.3 L (8.6-10.3) mg/dl Magnesium 1.6 L (1.7-2.4) mg/dl PG Care Time/CCT Total # of Minutes Spent Total Time Spent with Patient: Total time spent is greater than 50% in coordination of care (as documented) at patient's floor/unit and/or counseling patient: Coding Level of Care Code 91343 SUB INP/OBS CARE 2/35MIN Diagnoses Colitis K52.9
[2023-07-27] MEDS: ALUMINUM/MAGNESIUM SUSP 30 ML UDC PO STA (11:49)
--- NOTE | 2023-07-27 12:01 | XRay Report ---
XR KUB/Abdomen 1 view CLINICAL HISTORY: eval for ileus TECHNIQUE: 1 view of the abdomen was obtained. Comparison: Comparison is made to abdomen radiograph 07/25/2023 FINDINGS: Lung bases are unremarkable. The osseous structures are grossly unremarkable. Gas distended loops of small bowel measuring up to 39 mm. Small stool burden is seen. IMPRESSION: Gaseous distention of the small bowel is again seen compatible with enterocolitis/ileus. ACT 112: Negative or not required by law. Electronically signed by: Wesley Morgan M.D. 07/27/2023 12:00 PM
--- NOTE | 2023-07-27 15:56 | Hospitalist Progress Note ---
Date of Service July 27, 2023 Assessment & Plan (1) Severe sepsis: Plan: SIRS plus ARF plus lactic acidosis Diarrhea Colitis Patient presented to the hospital due to abdominal pain, nausea and vomiting for 2 days initial stool panel PCR, C diff: Negative Second stool panel PCR, C. difficile, unable to be collected secondary to urinary incontinence CT abdomen/pelvis on admission: 1. Postoperative changes of the low anterior abdominal wall may reflect previous abdominoplasty or TRAM flap. Fluid collection within or just subjacent to the deep abdominal wall musculature and extending into the pre-vesicular space of Retzius, measuring 2.7 x 5.6 x 17 cm, possibly postoperative hematoma/seroma. Multiple regional surgical clips. Subcutaneous drainage catheter extends through the overlying tissues, not entering this collection. 2. Fluid-filled small bowel. Fluid-filled colon with pancolonic wall thickening. Findings suggest colitis/enterocolitis. 3. Bladder wall thickening, cystitis or incomplete distention. Correlate with urinalysis. Repeat CT abdomen pelvis on 07/23: No increase in fluid collection Patient was having persistent nausea vomiting, diarrhea Although initial stool panel was negative, elected to treat with empiric vancomycin p.o. for presumed C. difficile colitis. Diarrhea, vomiting improved. Continued to be nauseous Continue IV fluids; advance to full liquid diet Continue on Zosyn and daptomycin for possible infectious colitis Evaluated by infectious disease; recommended to continue IV antibiotics for the time being. If patient's leukocytosis/symptoms not improving; ID to revisit the collection Postprocedural seroma of Abdominal wall following breast reconstructive surgery General surgery on board, does not recommend drainage of fluid at this point Hypertension, BP currently stable, patient initially hypotensive at home Hyperlipidemia on statin Rx, continue Bronchial asthma, patient currently without pulmonary symptoms Left breast cancer status post surgery status post chemoradiation status post recent reconstruction currently on letrozole Anemia, hemoglobin improved from postop hemoglobin of 9 from last month, likely from hemoconcentration Hg 11--> 10--> 9.2--> 11.1 > 9.5 past tobacco abuse DVT prophylaxis. Lovenox subcu daily Full code Disposition: continues to have abdominal discomfort. currently on iv antibiotics. diet to be advanced as tolerated Time spent evaluating patient, direct bedside care, chart review, placing orders, interpretation of diagnostic studies, discussion with consultants, patient, and family members, as well as other required patient management activities is 50 minutes Please note the above document was generated using voice recognition software. It may contain grammatical, syntax or spelling errors. Any formal questions or concerns about the content, text or information contained within the body of this dictation should be directly addressed to the provider for clarification Admission and Anticipated Discharge Date Admission Date: July 23, 2023 Subjective Patient seen and examined at bedside. She reports continued pain on substernal region; reports decreased appetite. Vitals are stable; saturating well on room air Review of Systems Review of Systems: All systems reviewed & are unremarkable except as noted in Subjective Physical Exam Physical Exam: Constitutional: Alert oriented x 3; not in distress. Respiratory: normal respiratory effort, lungs clear to auscultation, no wheeze, rales, rhonchi. Normal insp/exp effort, no accessory muscle use Cardiovascular: RRR, no murmur, no edema Vessels: no JVD or carotid bruit Chest: normal inspection of chest Abdomen: Soft, slightly distended. Mild tenderness present in epigastric region Skin: no rashes, warm and dry normal turgor Neurologic: PERRL, EOMI, accommodation nl, no face palsy, no dysarthria CN's II- XI intact bilaterally and moves all extremities Psychiatric: A+Ox3, euthymic affect Results & Data Results & Data Vital Signs (Past 12 Hours) Vital Signs Temp Pulse Pulse Resp BP Pulse Ox O2 Del Method 07/27/23 12:02 36.6 C 99 H 18 143/85 H 96 Room Air 07/27/23 11:08 Room Air 07/27/23 08:30 36.7 C 102 H 18 147/86 H 94 Room Air 07/27/23 07:30 91 H 07/27/23 04:36 36.6 C 99 H 20 133/79 95 Room Air
[2023-07-28 08:18] LABS: Hematocrit (blood only) 30.4 % (37.0-47.0); Hemoglobin 9.6 g/dl (12.0-16.0); Mean Corpuscular Hemoglobin 30.5 pg (25.0-34.0); Mean Corpuscular Hgb Conc 31.6 g/dL (32.0-36.0); Mean Corpuscular Volume 96.5 fL (80.0-100.0); Mean Platelet Volume 9.1 fL (9.4-12.4); Platelet Count 578 K/uL (130-400); RDW Coefficient of Variation 16.9 % (11.5-14.5); RDW Standard Deviation 58.2 fL (36.4-46.3); Red Blood Count 3.15 M/uL (4.20-5.40); White Blood Count 8.66 K/ul (4.8-10.8)
[2023-07-28 08:21] LABS: BUN Creatinine Ratio 6.2 (10-20); Calcium 8.5 mg/dl (8.6-10.3); Creatinine Clr Calc Pharmacy 90.7 ml/min; Est GFR (African American) 102.8 ml/min; Est GFR (Non-African American) 88.7 ml/min; Magnesium 1.5 mg/dl (1.7-2.4); Potassium 3.6 mmol/L (3.5-5.1)
[2023-07-28 08:46] LABS: ALC (manual) 0.87 K/uL (1.2-3.4); ANC (manual) 5.89 K/uL (1.4-6.5); Basophils # (manual) 0.17 K/uL (0-0.2); Basophils % (manual) 2 %; Eosinophils # (manual) 0.61 K/uL (0-0.50); Eosinophils % (manual) 7 %; Lymphocytes # (manual) 0.87 K/uL (1.2-3.4); Lymphocytes % (manual) 10 %; Metamyelocytes # (manual) 0.17 K/uL (0-0); Metamyelocytes % (manual) 2 %; Monocytes # (manual) 0.95 K/uL (0.11-0.59); Monocytes % (manual) 11 %; Neutrophils # (manual) 5.89 K/uL (1.40-6.50); Neutrophils % (manual) 68 %; RBC Morphology Unremarkable
--- NOTE | 2023-07-28 08:58 | Gastroenterology Progress Note ---
Date of Service July 28, 2023 Assessment & Plan (1) Colitis: Plan: 72 year old female with history of hypertension, hyperlipidemia, bronchial asthma, left breast cancer s/p chemo/radiation and reconstruction w/ recent admission to [facility] [place] under Plastic Surgery service for left breast reconstruction with RADHA flap admitted to [facility] w/ SIRS/Sepsis, nausea/vomiting and diarrhea - GI was asked to evaluate for nausea/vomiting. She is clinically improving, tolerating oral intake w/o nausea/vomiting. She is starting to move her bowels, imaging yesterday was concerning for ileus. Would continue plan w/ treatment of colitis. 2 week course of antacid for heartburn. Encouraged OOB and ambulation as tolerated. I spent a total of 55 minutes on the date of service in review of patient's record, and previously obtained information in person and appropriate medical visit, discussion and education of plan, with patient and/or caregiver, placing orders for tests/referral/procedures as medically necessary and documentation of pertinent clinical information in patient's medical records for their visit today. Admission and Anticipated Discharge Date Admission Date: July 23, 2023 Supervising Physician Co-Signing Physician Notes I examined the patient and reviewed patient's chart , laboratory data and imaging studies. I agree with with assessment and plan of care as suggested by advanced practice provider. The patient is slowly improving. Moving bowels. Denies vomiting, tolerating diet. Still complains of abdominal distention. On examination the abdomen is still distended and tympanic with diffuse mild tenderness on deep palpation without guarding and rebound. The patient's clinical presentation is most consistent with an ileus, possible nonspecific enterocolitis. Out of bed. Limit pain medications. Antibiotics as per ID Subjective Pt was seen and evaluated, chart reviewed. Is feeling improved. Is OOB in chair, eating breakfast. No further nausea, dry heaving or vomiting. Abd pain/pressure is also improved. She has had 2 BMs in 24 hours, notes some form, green stool. No black or bloody stools. Review of Systems Review of Systems: All other findings negative except as noted in HPI. Physical Exam Constitutional: WD/WN, vitals as above Respiratory: normal respiratory effort, lungs clear to auscultation Cardiovascular: Rate/Rhythm: regular rate and regular rhythm Gastrointestinal (Abdomen): Inspection/Auscultation: abdomen normal to inspection and + abdomen distended (present but less distended that yesterday) Percussion/Palpation: + abdomen tender (generalized discomfort ) and abdomen soft; no guarding and abdomen not rigid Skin: no rashes, warm and dry Results & Data Results & Data Vital Signs (Past 12 Hours) Vital Signs Temp Pulse Pulse Resp BP Pulse Ox O2 Del Method 07/28/23 08:28 36.6 C 92 H 18 134/81 96 Room Air 07/28/23 07:48 88 07/28/23 03:20 36.6 C 85 18 133/80 97 Room Air 07/27/23 23:23 36.5 C 105 H 16 138/83 96 Room Air 07/27/23 22:20 100 H PG Care Time/CCT Total # of Minutes Spent Total Time Spent with Patient: Total time spent is greater than 50% in coordination of care (as documented) at patient's floor/unit and/or counseling patient: Coding Level of Care Code 32074 SUB INP/OBS CARE 3/50MIN Diagnoses Colitis K52.9
[2023-07-28] MEDS: MAGNESIUM SULFATE / D5W 1 GM/100 ML BAG IV SCH (09:43)
[2023-07-28] MEDS: PANTOprazole 40 MG TAB PO SCH (11:33)
[2023-07-28] MEDS: oxyCODONE HCL IR 5 MG TAB (IMMEDIATE RELEASE) PO PRN (11:47)
--- NOTE | 2023-07-28 14:57 | Hospitalist Progress Note ---
Date of Service July 28, 2023 Assessment & Plan (1) Severe sepsis: Plan: SIRS plus ARF plus lactic acidosis Diarrhea Colitis Patient presented to the hospital due to abdominal pain, nausea and vomiting for 2 days initial stool panel PCR, C diff: Negative Second stool panel PCR, C. difficile, unable to be collected secondary to urinary incontinence CT abdomen/pelvis on admission: 1. Postoperative changes of the low anterior abdominal wall may reflect previous abdominoplasty or TRAM flap. Fluid collection within or just subjacent to the deep abdominal wall musculature and extending into the pre-vesicular space of Retzius, measuring 2.7 x 5.6 x 17 cm, possibly postoperative hematoma/seroma. Multiple regional surgical clips. Subcutaneous drainage catheter extends through the overlying tissues, not entering this collection. 2. Fluid-filled small bowel. Fluid-filled colon with pancolonic wall thickening. Findings suggest colitis/enterocolitis. 3. Bladder wall thickening, cystitis or incomplete distention. Correlate with urinalysis. Repeat CT abdomen pelvis on 07/23: No increase in fluid collection Patient was having persistent nausea vomiting, diarrhea Although initial stool panel was negative, elected to treat with empiric vancomycin p.o. for presumed C. difficile colitis. Diarrhea, vomiting improved. Continued to be nauseous Continue IV fluids; advance to regular diet. Continue on Zosyn and daptomycin for possible infectious colitis Evaluated by infectious disease; recommended to continue IV antibiotics for the time being. If patient's leukocytosis/symptoms not improving; ID to revisit the collection Postprocedural seroma of Abdominal wall following breast reconstructive surgery General surgery on board, does not recommend drainage of fluid at this point Hypertension, BP currently stable, patient initially hypotensive at home Hyperlipidemia on statin Rx, continue Bronchial asthma, patient currently without pulmonary symptoms Left breast cancer status post surgery status post chemoradiation status post recent reconstruction currently on letrozole Anemia, hemoglobin improved from postop hemoglobin of 9 from last month, likely from hemoconcentration past tobacco abuse DVT prophylaxis. Lovenox subcu daily Full code Disposition: continues to have abdominal discomfort. currently on iv antibiotics. diet to be advanced as tolerated Please note the above document was generated using voice recognition software. It may contain grammatical, syntax or spelling errors. Any formal questions or concerns about the content, text or information contained within the body of this dictation should be directly addressed to the provider for clarification Admission and Anticipated Discharge Date Admission Date: July 23, 2023 Subjective Patient seen and examined at bedside. She is sitting up on the bed; not in distress. Complains of discomfort around the surgical site. Review of Systems Review of Systems: All systems reviewed & are unremarkable except as noted in Subjective Physical Exam Physical Exam: Constitutional: Alert oriented x 3; not in distress. Respiratory: normal respiratory effort, lungs clear to auscultation, no wheeze, rales, rhonchi. Normal insp/exp effort, no accessory muscle use Cardiovascular: RRR, no murmur, no edema Vessels: no JVD or carotid bruit Chest: normal inspection of chest Abdomen: Soft, slightly distended. Mild tenderness present in epigastric region Skin: no rashes, warm and dry normal turgor Neurologic: PERRL, EOMI, accommodation nl, no face palsy, no dysarthria CN's II- XI intact bilaterally and moves all extremities Psychiatric: A+Ox3, euthymic affect Results & Data Results & Data Vital Signs (Past 12 Hours) Vital Signs Temp Pulse Pulse Resp BP Pulse Ox O2 Del Method 07/28/23 11:35 36.8 C 96 H 18 150/85 H 96 Room Air 07/28/23 08:28 36.6 C 92 H 18 134/81 96 Room Air 07/28/23 08:00 Room Air 07/28/23 07:48 88 07/28/23 03:20 36.6 C 85 18 133/80 97 Room Air
[2023-07-28 16:07] LABS: Adenovirus F 40/41 PCR Not Detected (NotDetected); Astrovirus PCR Not Detected (NotDetected); Campylobacter PCR Not Detected (NotDetected); Cryptosporidium PCR Not Detected (NotDetected); Cyclospora cayetanensis PCR Not Detected (NotDetected); Entamoeba histolytica PCR Not Detected (NotDetected); Enteroaggregative E.coli(EAEC) Not Detected (NotDetected); Enteropathogenic E.coli (EPEC) Not Detected (NotDetected); Enterotoxigenic E.coli (ETEC) Not Detected (NotDetected); Giardia lamblia PCR Not Detected (NotDetected); Norovirus GI/GII PCR Not Detected (NotDetected); Plesiomonas shigelloides PCR Not Detected (NotDetected); Rotavirus A PCR Not Detected (NotDetected); Salmonella PCR Not Detected (NotDetected); Sapovirus PCR Not Detected (NotDetected); Shiga-like Toxin E.coli (STEC) Not Detected (NotDetected); Shigella/Enteroinvasive E.coli Not Detected (NotDetected); Vibrio cholerae PCR Not Detected (NotDetected); Vibrio species PCR Not Detected (NotDetected); Yersinia enterocolitica PCR Not Detected (NotDetected)
[2023-07-29 07:21] LABS: Hematocrit (blood only) 28.4 % (37.0-47.0); Hemoglobin 8.9 g/dl (12.0-16.0); Mean Corpuscular Hemoglobin 30.4 pg (25.0-34.0); Mean Corpuscular Hgb Conc 31.3 g/dL (32.0-36.0); Mean Corpuscular Volume 96.9 fL (80.0-100.0); Mean Platelet Volume 8.7 fL (9.4-12.4); Platelet Count 476 K/uL (130-400); RDW Coefficient of Variation 16.8 % (11.5-14.5); RDW Standard Deviation 58.9 fL (36.4-46.3); Red Blood Count 2.93 M/uL (4.20-5.40); White Blood Count 6.73 K/ul (4.8-10.8)
[2023-07-29 07:40] LABS: Basophils # (auto) 0.05 K/uL (0.00-0.20); Basophils % (auto) 0.7 %; Eosinophils # (auto) 0.65 K/uL (0.00-0.50); Eosinophils % (auto) 9.7 %; Immature Granulocytes # (auto) 0.47 K/uL (0.01-0.20); Lymphocytes # (auto) 1.37 K/uL (1.20-3.40); Lymphocytes % (auto) 20.4 %; Monocytes # (auto) 0.49 K/uL (0.11-0.59); Monocytes % (auto) 7.3 %; Neutrophils % (auto) 54.9 %; Polychromasia 1+
[2023-07-29 07:42] LABS: BUN Creatinine Ratio 6.1 (10-20); Calcium 8.3 mg/dl (8.6-10.3); Creatinine Clr Calc Pharmacy 89.3 ml/min; Est GFR (African American) 102.3 ml/min; Est GFR (Non-African American) 88.3 ml/min; Magnesium 1.7 mg/dl (1.7-2.4); Potassium 3.5 mmol/L (3.5-5.1)
--- NOTE | 2023-07-29 10:07 | Gastroenterology Progress Note ---
Date of Service July 29, 2023 Assessment & Plan (1) Colitis: Plan: 72 year old female with history of hypertension, hyperlipidemia, bronchial asthma, left breast cancer s/p chemo/radiation and reconstruction w/ recent [place] [facility] [place] service for left breast reconstruction with RADHA flap admitted to [facility] w/ SIRS/Sepsis, nausea/vomiting and diarrhea - GI was asked to evaluate for nausea/vomiting. She is clinically improving, tolerating oral intake w/o nausea/vomiting. She is starting to move her bowels, imaging yesterday was concerning for ileus. Would continue plan w/ treatment of colitis. 2 week course of antacid for heartburn. Encouraged OOB and ambulation as tolerated. Recall GI as needed. I spent a total of 55 minutes on the date of service in review of patient's record, and previously obtained information in person and appropriate medical visit, discussion and education of plan, with patient and/or caregiver, placing orders for tests/referral/procedures as medically necessary and documentation of pertinent clinical information in patient's medical records for their visit today. Admission and Anticipated Discharge Date Admission Date: July 23, 2023 Supervising Physician Co-Signing Physician Notes I examined the patient and reviewed patient's chart , laboratory data and imaging studies. I agree with with assessment and plan of care as suggested by advanced practice provider. The patient is much improved. Less abdominal discomfort. Appetite is increasing. Had 2 formed bowel movements. On physical examination abdomen is much less distended. Clinically postoperative ileus. Symptoms are improving, ileus appears to be resolving. If stable okay to discharge within the next 1-2 days from GI standpoint. Subjective Feeling improved. OOB in chair. Has been ambulating room. Looking forward to ambulating halls today. Abd pain has resolved!! Appetite is not fully resolved. Eating soft foods. She has had two loose stools today. No black or bloody output Review of Systems Review of Systems: All other findings negative except as noted in HPI. Physical Exam Constitutional: WD/WN, vitals as above Respiratory: normal respiratory effort, lungs clear to auscultation Cardiovascular: Rate/Rhythm: regular rate and regular rhythm Gastrointestinal (Abdomen): Inspection/Auscultation: + abdomen distended (less distention today) and normal bowel sounds Skin: no rashes, warm and dry Results & Data Results & Data Vital Signs (Past 12 Hours) Vital Signs Temp Pulse Pulse Resp BP Pulse Ox O2 Del Method 07/29/23 07:58 36.7 C 98 H 18 132/80 98 Room Air 07/29/23 07:26 92 H 07/29/23 03:27 36.6 C 96 H 18 121/75 95 Room Air 07/28/23 23:32 36.8 C 101 H 18 107/71 95 Room Air 07/28/23 23:00 101 H Laboratory Results 07/29/23 07/28/23 Range/Units 07:01 00:44 WBC 6.73 (4.8-10.8) K/ul RBC 2.93 L (4.20-5.40) M/uL Hgb 8.9 L (12.0-16.0) g/dl Hct 28.4 L (37.0-47.0) % MCV 96.9 (80.0-100.0) fL MCH 30.4 (25.0-34.0) pg MCHC 31.3 L (32.0-36.0) g/dL RDW Std Deviation 58.9 H (36.4-46.3) fL RDW Coeff of Braxton 16.8 H (11.5-14.5) % Plt Count 476 H (130-400) K/uL MPV 8.7 L (9.4-12.4) fL Immature Gran % (Auto) 7.0 % Neut % (Auto) 54.9 % Lymph % (Auto) 20.4 % Burke % (Auto) 7.3 % Eos % (Auto) 9.7 % Baso % (Auto) 0.7 % Neut # (Auto) 3.70 (1.40-6.50) K/uL Lymph # (Auto) 1.37 (1.20-3.40) K/uL Burke # (Auto) 0.49 (0.11-0.59) K/uL Eos # (Auto) 0.65 H (0.00-0.50) K/uL Baso # (Auto) 0.05 (0.00-0.20) K/uL Immature Gran # (Auto) 0.47 H (0.01-0.20) K/uL Polychromasia 1+ Sodium 138 (136-145) mmol/L Potassium 3.5 (3.5-5.1) mmol/L Chloride 111 H (98-107) mmol/L Carbon Dioxide 22 (21-32) mmol/L Anion Gap 5 (3-11) BUN 4 L (6-23) mg/dl Creatinine 0.66 (0.6-1.2) mg/dl Est Cr Clr Drug Dosing 89.3 ml/min Est GFR ( Amer) 102.3 ml/min Est GFR (Non-Af Amer) 88.3 ml/min BUN/Creatinine Ratio 6.1 L (10-20) Glucose 103 H (70-99(Fasting)) mg/dl Calcium 8.3 L (8.6-10.3) mg/dl Magnesium 1.7 (1.7-2.4) mg/dl Stl C. cayetanensis PCR Not Detected (NotDetected) Stool Rotavirus A PCR Not Detected (NotDetected) Stl Adenov F 40/41 PCR Not Detected (NotDetected) Stool Astrovirus (PCR) Not Detected (NotDetected) Stool Campylobacter PCR Not Detected (NotDetected) Stool Cryptosporidium PCR Not Detected (NotDetected) Stl E.coli Shiga Tox PCR Not Detected (NotDetected) Stl Enterotoxigenic E PCR Not Detected (NotDetected) Stool EPEC (PCR) Not Detected (NotDetected) Stool EAEC (PCR) Not Detected (NotDetected) Stl E. histolytica PCR Not Detected (NotDetected) Stool Giardia Lamblia PCR Not Detected (NotDetected) Stool Salmonella PCR Not Detected (NotDetected) Stool Sapovirus (PCR) Not Detected (NotDetected) Stl P. shigelloides PCR Not Detected (NotDetected) Stl Shigella/EIEC PCR Not Detected (NotDetected) St Y.enterocolitica PCR Not Detected (NotDetected) Stool Vibrio (PCR) Not Detected (NotDetected) Stl Vibrio cholerae PCR Not Detected (NotDetected) Stl Norovirus GI/GII PCR Not Detected (NotDetected) PG Care Time/CCT Total # of Minutes Spent Total Time Spent with Patient: Total time spent is greater than 50% in coordination of care (as documented) at patient's floor/unit and/or counseling patient: Coding Level of Care Code 64492 SUB INP/OBS CARE MIN Diagnoses Colitis K52.9
--- NOTE | 2023-07-29 13:40 | Hospitalist Progress Note ---
Date of Service July 29, 2023 Assessment & Plan (1) Severe sepsis: Plan: SIRS plus ARF plus lactic acidosis Diarrhea Colitis Patient presented to the hospital due to abdominal pain, nausea and vomiting for 2 days initial stool panel PCR, C diff: Negative Second stool panel PCR, C. difficile, unable to be collected secondary to urinary incontinence CT abdomen/pelvis on admission: 1. Postoperative changes of the low anterior abdominal wall may reflect previous abdominoplasty or TRAM flap. Fluid collection within or just subjacent to the deep abdominal wall musculature and extending into the pre-vesicular space of Retzius, measuring 2.7 x 5.6 x 17 cm, possibly postoperative hematoma/seroma. Multiple regional surgical clips. Subcutaneous drainage catheter extends through the overlying tissues, not entering this collection. 2. Fluid-filled small bowel. Fluid-filled colon with pancolonic wall thickening. Findings suggest colitis/enterocolitis. 3. Bladder wall thickening, cystitis or incomplete distention. Correlate with urinalysis. Repeat CT abdomen pelvis on 07/23: No increase in fluid collection Patient was having persistent nausea vomiting, diarrhea Although initial stool panel was negative, elected to treat with empiric vancomycin p.o. for presumed C. difficile colitis. Diarrhea, vomiting improved. Continued to be nauseous Continue IV fluids; advance to regular diet. Continue on Zosyn and daptomycin for possible infectious colitis Postprocedural seroma of Abdominal wall following breast reconstructive surgery General surgery on board, does not recommend drainage of fluid at this point Hypertension, BP currently stable, patient initially hypotensive at home Hyperlipidemia on statin Rx, continue Bronchial asthma, patient currently without pulmonary symptoms Left breast cancer status post surgery status post chemoradiation status post recent reconstruction currently on letrozole Anemia, hemoglobin improved from postop hemoglobin of 9 from last month, likely from hemoconcentration past tobacco abuse DVT prophylaxis. Lovenox subcu daily Full code Disposition: continues to have abdominal discomfort. currently on iv antibiotics. diet to be advanced as tolerated. possible dc in am Please note the above document was generated using voice recognition software. It may contain grammatical, syntax or spelling errors. Any formal questions or concerns about the content, text or information contained within the body of this dictation should be directly addressed to the provider for clarification Admission and Anticipated Discharge Date Admission Date: July 23, 2023 Subjective Abdominal pain has resolved. She reports couple of episodes of diarrhea in the morning Reports that she is feeling better overall No significant events overnight Review of Systems Review of Systems: All systems reviewed & are unremarkable except as noted in Subjective Physical Exam Physical Exam: Constitutional: Alert oriented x 3; not in distress. Respiratory: normal respiratory effort, lungs clear to auscultation, no wheeze, rales, rhonchi. Normal insp/exp effort, no accessory muscle use Cardiovascular: RRR, no murmur, no edema Vessels: no JVD or carotid bruit Chest: normal inspection of chest Abdomen: Soft, slightly distended. Mild tenderness present in epigastric region Skin: no rashes, warm and dry normal turgor Neurologic: PERRL, EOMI, accommodation nl, no face palsy, no dysarthria CN's II- XI intact bilaterally and moves all extremities Psychiatric: A+Ox3, euthymic affect Results & Data Results & Data Vital Signs (Past 12 Hours) Vital Signs Temp Pulse Pulse Resp BP Pulse Ox O2 Del Method 07/29/23 11:49 36.6 C 106 H 18 146/93 H 97 Room Air 07/29/23 07:58 36.7 C 98 H 18 132/80 98 Room Air 07/29/23 07:26 92 H 07/29/23 03:27 36.6 C 96 H 18 121/75 95 Room Air
[2023-07-30 07:02] LABS: Hematocrit (blood only) 27.9 % (37.0-47.0); Mean Corpuscular Hemoglobin 30.6 pg (25.0-34.0); Mean Corpuscular Hgb Conc 32.3 g/dL (32.0-36.0); Mean Corpuscular Volume 94.9 fL (80.0-100.0); Mean Platelet Volume 8.9 fL (9.4-12.4); Platelet Count 452 K/uL (130-400); RDW Coefficient of Variation 16.7 % (11.5-14.5); Red Blood Count 2.94 M/uL (4.20-5.40); White Blood Count 4.93 K/ul (4.8-10.8)
[2023-07-30 07:38] LABS: Basophils # (auto) 0.04 K/uL (0.00-0.20); Basophils % (auto) 0.8 %; Eosinophils # (auto) 0.52 K/uL (0.00-0.50); Eosinophils % (auto) 10.5 %; Immature Granulocytes # (auto) 0.31 K/uL (0.01-0.20); Immature Granulocytes % (auto) 6.3 %; Lymphocytes # (auto) 0.91 K/uL (1.20-3.40); Lymphocytes % (auto) 18.5 %; Monocytes % (auto) 8.1 %; Neutrophils # (auto) 2.75 K/uL (1.40-6.50); Neutrophils % (auto) 55.8 %; RBC Morphology Unremarkable
[2023-07-30 07:51] LABS: BUN Creatinine Ratio 6.5 (10-20); Calcium 8.2 mg/dl (8.6-10.3); Creatinine Clr Calc Pharmacy 95.4 ml/min; Est GFR (African American) 104.4 ml/min; Est GFR (Non-African American) 90.1 ml/min; Magnesium 1.5 mg/dl (1.7-2.4); Potassium 3.4 mmol/L (3.5-5.1)
--- NOTE | 2023-07-30 15:40 | Discharge Summary ---
Date of Service July 30, 2023 Admission HPI Per Admitting Provider History obtained from patient and records. Medical history significant for hypertension, hyperlipidemia, bronchial asthma, left breast cancer status post surgery status post chemoradiation status post recent reconstruction currently on letrozole, lung nodule, past tobacco abuse. Recent [facility] confinement under Plastic Surgery service for left breast reconstruction with RADHA flap. Patient hypotensive postprocedure requiring pressor Rx at ICU.. Postop hemoglobin noted to be 6.8 requiring PRBC transfusion. Hemoglobin noted to be 9 at time of discharge. No concerns on outpatient Plastic Surgery follow-up visit last week. Yesterday, patient started not feeling well with achy abdominal pain followed by bilious emesis and watery diarrhea. Denies headache, chest pain, cough, SOB symptoms. Patient lightheaded, felt like she was going to pass out. EMS called to patient's home. Patient looked ashen tapia as per report. SBP noted to be 80s. Zosyn administered at the ER. Medical History as above Surgical History : Breast capsulectomy, breast lesion excision, breast implant, complete mastectomy left, mastopexy, a port placement, embolectomy, cataract surgeries, BHARGAVI Family History : Breast cancer, heart disease, lung cancer Personal/Social history : Past tobacco abuse, occasional EtOH intake, retired from criminal investigation work. Admission Exam Per Admitting Provider GENERAL: Comfortable, pleasant, no respiratory distress SKIN: Pallor, warm HEENT: Pale palpebral conjunctivae, no ptosis, dry buccal mucosa NECK : Supple, no tenderness CHEST : CTA, no tenderness HEART : Tachycardic, no obvious murmurs ABDOMEN: Some distention, jeni in place, minimal hypogastric tenderness EXTREMITIES : No LE swelling/tenderness, no other conspicuous deformities noted NEUROLOGIC : Coherent, no facial asymmetry, no other gross focality Principal Diagnosis Infectious colitis Ileus Discharge Exam Constitutional: Alert oriented x 3; not in distress. Respiratory: normal respiratory effort, lungs clear to auscultation, no wheeze, rales, rhonchi. Normal insp/exp effort, no accessory muscle use Cardiovascular: RRR, no murmur, no edema Vessels: no JVD or carotid bruit Chest: normal inspection of chest Abdomen: Soft, slightly distended. non-tender Skin: no rashes, warm and dry normal turgor Neurologic: PERRL, EOMI, accommodation nl, no face palsy, no dysarthria CN's II- XI intact bilaterally and moves all extremities Psychiatric: A+Ox3, euthymic affect Discharge Data Allergies Allergy/AdvReac Type Severity Reaction Status Date / Time nicotine [From Mireya ] AdvReac Nightmare Verified 07/22/23 23:59 Consultations 07/22/23 23:22 ED Decision to Admit Stat 07/22/23 23:37 Consult General Surgery Stat 07/24/23 10:30 Consult Infectious Diseases Routine 07/25/23 17:26 Consult Gastroenterology Routine Ordered Studies 07/22/23 21:16 CT abd pelvis IV con only Stat 07/22/23 21:17 CT angio chest PE protocol Stat 07/24/23 10:28 CT Abd and Pelvis [CT abd pelvis wo con] Stat Hospital Course (1) Severe sepsis: SIRS plus ARF plus lactic acidosis Diarrhea Infectious Colitis Ileus Patient presented to the hospital due to abdominal pain, nausea and vomiting for [address] abdomen pelvis showed fluid-filled small bowel suggestive of colitis/enterocolitis. Patient underwent stool PCR and C. difficile which was negative Patient was admitted to medical floor; was started on IV antibiotics for colitis. She was also placed on oral vancomycin for presumed C. difficile initially. Patient shows gradual improvement with improvement of nausea, vomiting, abdominal pain and diarrhea. Leukocytosis resolved. Patient was tolerating regular diet at the time of the discharge. Postprocedural seroma of Abdominal wall following breast reconstructive surgery CT abdomen pelvis on admission showed postprocedural seroma. General surgery was consulted; did not recommend drainage at this point Infectious disease was also consulted; patient's primary problem was thought secondary to colitis. Patient to follow-up with her outpatient plastic surgeon. Patient was started on omeprazole 20 mg once a day for GERD at discharge. Please note the above document was generated using voice recognition software. It may contain grammatical, syntax or spelling errors. Any formal questions or concerns about the content, text or information contained within the body of this dictation should be directly addressed to the provider for clarification Total Time Total Time Spent Total Time Spent (In Minutes): 34 Total Time Includes: Examination of the Patient, Discharge Planning, Medication Reconciliation, Communication With Other Providers and Other Discharge Plan Discharge Items Patient Disposition: Home - Self-Care Reason For Visit: SEPSIS Discharge Diagnosis: SIRS plus ARF plus lactic acidosis Diarrhea Colitis Postprocedural seroma of Abdominal wall following breast reconstructive surgery Activity: Resume your previous activity Non-emergency contact: Primary Care Provider Call non-emergency contact if: you have any medication questions and your symptoms worsen Follow-up/Referrals: Ashlee Goldberg PA-C [Other] (Date & Time 08/04/2023 9:30 AM Provider Ashlee Goldberg PA-C Department Plastic Surgery, [place] ) Agustin Olivares MD [Primary Care Provider] - (Date & Time 08/05/2023 11:10 AM Provider Marielle Moody DO Department [facility] ) Diet: Regular Addtl Attending Provider Instructions: You were admitted to the hospital due to colitis. You are treated with antibiotics during the hospitalization. You are also evaluated by GI doctor during the hospitalization. You completed antibiotic course. You are prescribed omeprazole 20 mg once a day to be taken for next 4 weeks for GERD symptoms. Please follow-up with your primary care doctor and plastic surgeon as scheduled Pending Studies at Discharge: No Stand-Alone Forms: My [facility], Smoking Cessation Medications and DC Order Prescriptions: New omeprazole 20 mg capsule,delayed release(DR/EC) 20 mg PO DAILY 28 Days Qty: 28 0RF Continued multivitamin Tablet 1 tab PO DAILY acetaminophen [Tylenol] 325 mg Tablet 650 mg PO TID PRN (Reason: Pain) Rx Instructions: Take am ,noon, and before hs aspirin 81 mg Tablet,Delayed Release (Dr/Ec) 81 mg PO DAILY tramadol 50 mg tablet 50 mg PO Q6 PRN (Reason: Pain) gabapentin 300 mg capsule 300 mg PO DAILY PRN (Reason: Pain) gabapentin 300 mg capsule 600 mg PO HS vit-iron fum-folic ac 27 mg iron- 0.8 mg Tablet 1 tab PO DAILY lisinopril 5 mg tablet 2.5 mg PO HS letrozole 2.5 mg tablet 2.5 mg PO DAILY ondansetron 4 mg tablet,disintegrating 4 mg translingual Q6 PRN (Reason: Nausea) rosuvastatin 10 mg tablet 10 mg PO QAM bupropion HCl 150 mg tablet extended release 24 hr 150 mg PO QAM Discontinued docusate sodium 100 mg Capsule 100 mg PO BID Discharge Orders: Discharge Order (Routine); Ordered 07/30/23 Ordered By: Shaji Cosme Admission Data Admit Date/Time: 07/23/23 01:09 Attending Provider: Shaji Cosme Admit Provider: Adal Salcedo Primary Care Provider: Agustin Olivares Other Providers: Adal Salcedo; Ronaldo Gill; Rafael Zepeda; Laurent Holland; Homer Smith I.; Luis Zimmer II; Yasmin Wells; Thierry Harmon; Christophe Michael; Kendal Thomason; Wander Jacques; [facility] Other Interventions: Discharge Summary Assessment (RN) Last Done: 07/30/23 10:46
== END 2023-07-30 11:33 | disposition home or self-care (01) | DRG 872 ==
LOC: ED 21:10 → SUATTDRO 07-23 01:09 → EDINP 07-23 01:09 → 2W 07-23 02:50